=== PATIENT | male | born 1965 | race Caucasian/White ===

== ENCOUNTER 2017-01-01 12:09 | Emergency (ER) | payer OTHER ==
[2017-01-01 12:31] VITALS: BP 155/85; PULSE 90; TEMP 97.5; BMI 28.8
[2017-01-01] MEDS ORDERED: ALBUTEROL SO4 0.083% IH SOL 2.5 MG/3 ML VIAL.NEB. NEB ONE (13:10)
--- NOTE | 2017-01-01 13:42 | PDOC ---
History of Present Illness - General Chief Complaint: Cold Symptoms Stated Complaint: CONGESTED, COUGH, FATIGUE Time Seen by Provider: 01/01/17 12:56 History Source: Patient Exam Limitations: Language Barrier - History of Present Illness Initial Comments: 01/01/17 13:39 51 yr male with 10 days URI symptoms,continues to have cough sinus pressure and thick nasal discharge. Pt states had fever last week and flu like symptoms that have improved. Pt is a smoker, denies alcohol, denies drug use , denies chest pain or shortness of breath. Severity: reports: mild Possible Cause: Yes: no prior episodes Past History - Past Medical History Allergies/Adverse Reactions: Allergies Allergy/AdvReac Type Severity Reaction Status Date / Time levofloxacin [From Levaquin] Allergy Rash Verified 01/01/17 12:27 Home Medications: Ambulatory Orders Omeprazole [Prilosec] 20 mg PO DAILY 04/04/16 Amoxicillin/Potassium Clav [Augmentin 875-125 Tablet] 1 each PO BID #14 tablet 01/01/17 Diabetes: Yes (BORDERLINE) HTN: Yes - Psycho/Social/Smoking Cessation Hx Suicidal Ideation: No Smoking History: Current every day smoker Number of Cigarettes Smoked Daily: 10 Information on smoking cessation initiated: No 'Breaking Loose' booklet given: 04/04/16 Hx Alcohol Use: No Drug/Substance Use Hx: No Substance Use Type: None Respiratory Specific PMHX - Complaint Specific PMHX Angina: No Bronchitis: No Pneumonia: No Pulmonary Embolus: No TB (Tuberculosis): No Review of Systems - Review of Systems Able to Perform ROS?: Yes Is the patient limited Icelandic proficient: No Constitutional: No: Symptoms Reported HEENTM: Yes: See HPI Respiratory: Yes: See HPI *Physical Exam - Vital Signs Last Vital Signs Temp Pulse Resp BP Pulse Ox 97.5 F L 90 19 155/85 98 01/01/17 12:27 01/01/17 12:27 01/01/17 12:27 01/01/17 12:27 01/01/17 12:27 - Physical Exam General Appearance: Yes: Nourished, Appropriately Dressed HEENT: positive: EOMI, ANIKA, TMs Normal, Nasal Congestion, Sinus Tenderness ( maxilary ) Neck: positive: Supple. negative: Tender Respiratory/Chest: positive: Lungs Clear, Normal Breath Sounds Cardiovascular: positive: Regular Rhythm, Regular Rate Gastrointestinal/Abdominal: positive: Normal Bowel Sounds, Soft Musculoskeletal: positive: Normal Inspection Extremity: positive: Normal Capillary Refill, Normal Inspection, Normal Range of Motion Integumentary: positive: Normal Color, Dry, Warm Neurologic: positive: Fully Oriented, Alert, Normal Mood/Affect, Normal Response , Motor Strength 04/02 ED Treatment Course - RADIOLOGY Radiology Studies Ordered: Category Date Time Status CHEST PA & LAT [RAD] Stat Radiology 01/01/17 12:58 Ordered Medical Decision Making - Medical Decision Making 01/01/17 13:42 cc: cough sinus pressure, congestion and nasal discharge will get CXR albuterol neb x1 *DC/Admit/Observation/Transfer Diagnosis at time of Disposition: Acute maxillary sinusitis Qualifiers: Recurrence: not specified Qualified Code(s): J01.00 - Acute maxillary sinusitis , unspecified - Discharge Dispostion Disposition: HOME Condition at time of disposition: Good - Prescriptions Prescriptions: Amoxicillin/Potassium Clav [Augmentin 875-125 Tablet] 1 each PO BID #14 tablet - Referrals Referrals: Matthew Garland MD [Staff Physician] - - Patient Instructions Additional Instructions: use albuterol inhaler for cough as directed take the prescribed antibiotics for sinus infection use saline nasal spray or a nasal cleaning system such as a Netti Pot to irrigate the nasal passages follow with the ENT doctor for follow up if symptoms do not improve
== END 2017-01-01 13:59 | disposition home or self-care (01) ==
LOC: JERFT 12:09
DX: R42 Dizziness and giddiness (principal); I10 Essential (primary) hypertension; F10.10 Alcohol abuse, uncomplicated; F17.210 Nicotine dependence, cigarettes, uncomplicated
CPT/HCPCS: 71020-TC; 99281-25

== ENCOUNTER 2018-03-30 12:51 | Inpatient (IN) | payer OTHER ==
[2018-03-30 14:29] VITALS: BMI 25.8
--- NOTE | 2018-03-30 20:28 | HP ---
CIWA Score - CIWA Score Nausea/Vomitin Muscle Tremors: 2 Anxiety: 2 Agitation: 0-Normal Activity Paroxysmal Sweats: 3 Orientation: 0-Oriented Tacttile Disturbances: 2-Mild Itch/Numbness/Burn Auditory Disturbances: 0-None Visual Disturbances: 1-Very Mild Sensitivity Headache: 2-Mild CIWA-Ar Total Score: 14 Admission ROS S - HPI Chief Complaint: " I am here for detox, I tried to stop on my own and is not working" Allergies/Adverse Reactions: Allergies Allergy/AdvReac Type Severity Reaction Status Date / Time levofloxacin [From Levaquin] Allergy Rash Verified 03/30/18 18:04 History of Present Illness: 52 yo male with hx of nicotine, THC, alcohol, cocaine, heroin dependence is here seeking detox. PMHX: psoriasis, STENT x2 placed 5 weeks ago, angina, depression, panic attacks, anxiety. Denies suicidal / homicidal ideation or attempts. Reports hx of suicidal thoughts in the past denies currently feeling suicidal. Longest period of sobriety 4 moths. Denies hx of seizures, reports frequent blackouts with last episode a week ago. Last detox [facility] August 2017. Exam Limitations: No Limitations - Ebola screening Have you traveled outside of the country in the last 21 days: No Have you had contact with anyone from an Ebola affected area: No Have you been sick,other than usual withdrawal symptoms: No - Review of Systems Constitutional: Chills, Loss of Appetite, Changes in sleep, Weakness, Unintentional Wgt. Loss (reports 30 lbs loss over three months) EENT: reports: Blurred Vision (wears glasses), Other (pruritus inside both ears secondary to psoriasis) Respiratory: reports: Shortness of Breath (when smoking crack / cocaine) Cardiac: reports: See HPI GI: reports: Constipated (last BM yesterday), Nausea, Poor Appetite, Poor Fluid Intake : reports: No Symptoms Reported Musculoskeletal: reports: No Symptoms Reported Integumentary: reports: Lesions, Pruritus Neuro: reports: Headache, Tingling Endocrine: reports: Increased Thirst Hematology: reports: No Symptoms Reported Psychiatric: reports: Orientated x3, Depressed Other Systems: Reviewed and Negative Patient History - Patient Medical History Hx Anemia: No Hx Asthma: No Hx Chronic Obstructive Pulmonary Disease (COPD): No Hx Cancer: No Hx Cardiac Disorders: Yes (BLOCKED ARTERIES, s/p STENT x 2 five weeks ago ) Hx Congestive Heart Failure: No Hx Hypertension: Yes Hx Hypercholesterolemia: Yes Hx Pacemaker: No HX Cerebrovascular Accident: No Hx Seizures: No Hx Dementia: No Hx Diabetes: No Hx Gastrointestinal Disorders: No Hx Liver Disease: No Hx Genitourinary Disorders: No Hx Sexually Transmitted Disorders: No Hx Renal Disease (ESRD): No Hx Thyroid Disease: No Hx Human Immunodeficiency Virus (HIV): No Hx Hepatitis C: No Hx Depression: Yes Hx Suicide Attempt: No Hx Bipolar Disorder: No Hx Schizophrenia: No - Patient Surgical History Past Surgical History: Yes Hx Neurologic Surgery: No Hx Cataract Extraction: No Hx Cardiac Surgery: Yes (2 STENTS 02/26/18) Hx Lung Surgery: No Hx Breast Surgery: No Hx Breast Biopsy: No Hx Abdominal Surgery: No Hx Appendectomy: No Hx Cholecystectomy: No Hx Genitourinary Surgery: No Hx Section: No Hx Orthopedic Surgery: No Hx Hysterectomy: No Other Surgical History: left tibia fx repair 2011 - PPD History Previous Implant?: No Documented Results: Negative w/o proof Implanted On Prior R Admission?: No PPD to be Administered?: Yes - Reproductive History Patient is a Female of Child Bearing Age (11 -55 yrs old): No - Smoking Cessation Smoking history: Current every day smoker Have you smoked in the past 12 months: Yes Aproximately how many cigarettes per day: 10 Hx Chewing Tobacco Use: No Initiated information on smoking cessation: Yes 'Breaking Loose' booklet given: 03/30/18 - Substance & Tx. History Hx Alcohol Use: Yes Hx Substance Use: Yes Substance Use Type: Alcohol, Cocaine, Heroin, Marijuana Hx Substance Use Treatment: Yes ([facility] August 2017) - Substances Abused Alcohol Route: Oral Frequency: Daily Amount used: 1 [place] 1O/ 12OZ OF COORSLIGHT Age of first use: 13 Date of Last Use: 03/30/18 Cocaine Route: Smoking Frequency: Daily Amount used: 1GRAM 1/2 Age of first use: 49 Date of Last Use: 03/29/18 Heroin Route: SNIFF Frequency: Daily Amount used: 1/2 GRAM Age of first use: 49 Date of Last Use: 03/30/18 Family Disease History - Family Disease History Family Disease History: Diabetes: Father, CA: Mother ( skin CA ), Other: Father, Mother Admission Physical Exam BHS - Vital Signs Vital Signs: Vital Signs - 24 hr 03/30/18 14:24 Temperature 98.1 F Pulse Rate 77 Respiratory 18 Rate Blood Pressure 141/77 - Physical General Appearance: Yes: Appropriately Dressed, Mild Distress, Anxious HEENTM: Yes: EOMI, Hearing grossly Normal, Normal ENT Inspection, Normocephalic , Normal Voice, ANIKA, Pharynx Normal, Tm's normal Respiratory: Yes: Chest Non-Tender, Lungs Clear, Normal Breath Sounds, No Respiratory Distress, No Accessory Muscle Use Neck: Yes: No masses,lesions,Nodules, Trachea in good position Breast: Yes: Breast Exam Deferred Cardiology: Yes: Regular Rhythm, Regular Rate Abdominal: Yes: Normal Bowel Sounds, Non Tender, Flat, Soft Genitourinary: Yes: Within Normal Limits Back: Yes: Normal Inspection Musculoskeletal: Yes: full range of Motion, Gait Steady, Pelvis Stable Extremities: Yes: Normal Capillary Refill, Normal Inspection, Normal Range of Motion, Non-Tender Neurological: Yes: caterer's aide II-XII NML intact, Fully Oriented, Alert, Motor Strength 5/5, Depressed Affect Integumentary: Yes: Diaphoresis, Other (multiple erythematous / silver plaques throughout) Lymphatic: Yes: Within Normal Limits - Diagnostic (1) Marijuana dependence Current Visit: Yes Status: Acute (2) Nicotine dependence Current Visit: Yes Status: Acute (3) Cocaine dependence Current Visit: Yes Status: Acute (4) Alcohol dependence with withdrawal Current Visit: Yes Status: Acute (5) Psoriasis Current Visit: Yes Status: Acute (6) Depression Current Visit: Yes Status: Acute Qualifiers: Depression Type: dysthymia Qualified Code(s): F34.1 - Dysthymic disorder (7) History of heart artery stent Current Visit: Yes Status: Acute (8) Opioid dependence Current Visit: Yes Status: Acute Qualifiers: Substance use status: uncomplicated Qualified Code(s): F11.20 - Opioid dependence, uncomplicated Cleared for Admission [facility] - Detox or Rehab [facility] Level of Care: Medically Managed Detox Regimen/Protocol: Librium [facility] Breath Alcohol Content Breath Alcohol Content: 0 Urine Drug Screen - Results Drug Screen Negative: No Urine Drug Screen Results: TRAVIS-Cocaine
[2018-03-30] MEDS ORDERED: LOPERAMIDE HCL 2 MG CAPSULE PO PRN (20:40)
[2018-03-30] MEDS ORDERED: NICOTINE POLACRILEX 2 MG GUM BC PRN (20:40)
[2018-03-30] MEDS ORDERED: guaiFENesin/D-METHORPHAN HB 10 ML UNIT-DOSE CUPS PO PRN (20:40)
[2018-03-30] MEDS ORDERED: chlordiazePOXIDE HCL 25 MG CAPSULE PO ONE (20:40)
[2018-03-30] MEDS ORDERED: hydrOXYzine PAMOATE 50 MG CAPSULE (FP) PO PRN (20:40)
[2018-03-30] MEDS ORDERED: MAGNESIUM HYDROX 2400MG/30ML ORAL SUSPENSION 30 ML CUP PO PRN (20:40)
[2018-03-30] MEDS ORDERED: IBUPROFEN 400 MG TABLET (FP) PO PRN (20:40)
[2018-03-30] MEDS ORDERED: MENTHOL/PHENOL 1 EACH UD MM PRN (20:40)
[2018-03-30] MEDS ORDERED: MAG HYDROX/AL HYDROX/SIMETH 30 ML UNIT-DOSE CUP PO PRN (20:40)
[2018-03-30] MEDS ORDERED: chlordiazePOXIDE HCL 25 MG CAPSULE PO PRN (20:40)
[2018-03-30] MEDS ORDERED: P-EPHED 60MG/TRIPROLIDI 2.5MG TABLET PO PRN (20:40)
[2018-03-30] MEDS ORDERED: MAGNESIUM CITRATE 300 ML BOTTLE PO PRN (20:40)
[2018-03-30] MEDS: CLOPIDOGREL BISULFATE 75 MG TABLET (FP) PO SCH (20:53)
[2018-03-30] MEDS: ASPIRIN COATED 81 MG TABLET.EC PO SCH (20:53)
[2018-03-30] MEDS ORDERED: MELATONIN 5 MG TABLETS PO PRN (22:00)
[2018-03-30] MEDS: chlordiazePOXIDE HCL 25 MG CAPSULE PO SCH (22:36)
[2018-03-30] MEDS: THIAMINE HCL 100 MG TABLET (FP) PO SCH (22:36)
[2018-03-30] MEDS: TRIAMCINOLONE ACET 0.1% OINT 15 GM TUBE TP SCH (23:11)
[2018-03-30 23:44] LABS: URINE APPEARANCE CLEAR; URINE BILIRUBIN NEGATIVE (<2.0 mg/dL); URINE COLOR YELLOW; URINE GLUCOSE (UA) NEGATIVE (NEGATIVE); URINE KETONE NEGATIVE (NEGATIVE); URINE LEUK ESTERASE NEGATIVE (NEGATIVE); URINE NITRITE NEGATIVE (NEGATIVE); URINE PROTEIN NEGATIVE (NEGATIVE); URINE UROBILINOGEN NEGATIVE mg/dL (0.2-1.0)
[2018-03-31] MEDS: chlordiazePOXIDE HCL 25 MG CAPSULE PO SCH ×4 (05:16→22:27)
[2018-03-31] MEDS: TRIAMCINOLONE ACET 0.1% OINT 15 GM TUBE TP SCH ×3 (06:39→22:27)
[2018-03-31 09:44] LABS: HEMATOCRIT 40.5 % (35.4-49); HEMOGLOBIN 13.9 GM/dL (11.7-16.9); MCH 30.4 pg (25.7-33.7); MCHC 34.2 g/dl (32.0-35.9); MEAN CELL VOLUME 88.8 fl (80-96); PLATELET COUNT 301 K/MM3 (134-434); RBC 4.56 M/mm3 (4.00-5.60); RDW 13.4 % (11.9-15.9); WHITE BLOOD COUNT 7.8 K/mm3 (4.0-10.0)
[2018-03-31] MEDS: CLOPIDOGREL BISULFATE 75 MG TABLET (FP) PO SCH (10:06)
[2018-03-31] MEDS: PRENATAL VITAMINS W/ FOLIC ACID TABLET (FP) PO SCH (10:06)
[2018-03-31] MEDS: ASPIRIN COATED 81 MG TABLET.EC PO SCH (10:06)
[2018-03-31 10:42] LABS: CHLORIDE 108 mmol/L (98-107); POTASSIUM 4.1 mmol/L (3.5-5.1); SODIUM 144 mmol/L (136-145)
[2018-03-31 10:51] LABS: ALBUMIN 3.1 g/dl (3.4-5.0); ALK PHOS 88 U/L (45-117); ANION GAP 9 (8-16); BILIRUBIN,TOTAL 0.4 mg/dL (0.2-1.0); BLOOD UREA NITROGEN 14 mg/dL (7-18); CALCIUM 8.5 mg/dL (8.5-10.1); CO2 27 mmol/L (21-32); GLUCOSE,RANDOM 132 mg/dL (74-106); SGOT/AST 14 U/L (15-37); SGPT/ALT 18 U/L (12-78); TOT PROT 5.9 g/dl (6.4-8.2)
--- NOTE | 2018-03-31 11:31 | EKG ---
Test Reason : Blood Pressure : / mmHG Vent. Rate : 063 BPM Atrial Rate : 063 BPM P-R Int : 154 ms QRS Dur : 090 ms QT Int : 398 ms P-R-T Axes : 039 -14 -18 degrees QTc Int : 407 ms NORMAL SINUS RHYTHM MODERATE VOLTAGE CRITERIA FOR LVH, MAY BE NORMAL VARIANT BORDERLINE ECG WHEN COMPARED WITH ECG OF 04-APR-2016 18:13, NO SIGNIFICANT CHANGE WAS FOUND Confirmed by INDRA TRIPP, JASEN ([id number]) on 03/31/2018 11:31:01 AM Referred By: Confirmed By:JASEN BURRELL MD
--- NOTE | 2018-03-31 11:40 | CONSULT ---
[facility] Psychiatric Consult - Data Date of interview: 03/31/18 Admission source: [facility] Identifying data: Patient is a 52 year old single male, without kids, unemployed , receiving food stamps, homeless but currently staying with a relative. This is patient's first admission to [facility]. Patient admitted to for alcohol, cocaine and opiate dependence. Substance Abuse History: Following information confirmed with Mr. Dimas: Smoking Cessation. Smoking history: Current every day smoker. Have you smoked in the past 12 months: Yes. Aproximately how many cigarettes per day: 10. Hx Chewing Tobacco Use: No. Initiated information on smoking cessation: Yes. ' Breaking Loose' booklet given: 03/30/18. - Substance & Tx. History. Hx Alcohol Use: Yes. Hx Substance Use: Yes. Substance Use Type: Alcohol, Cocaine , Heroin, Marijuana. Hx Substance Use Treatment: Yes ([facility] August 2017). - Substances Abused. Alcohol. Route: Oral. Frequency: Daily. Amount used: 1 [place] 1O/ 12OZ OF COORSLIGHT. Age of first use: 13. Date of Last Use : 03/30/18. Cocaine. Route: Smoking. Frequency: Daily. Amount used: 1GRAM 1/2. Age of first use: 49. Date of Last Use: 03/29/18. Heroin. Route: SNIFF. Frequency: Daily. Amount used: 1/2 GRAM. Age of first use: 49. Date of Last Use: 03/30/18 Medical History: Blocked arterties s/p stent X2 five weeks ago, hypertension, hypercholesterolemia, left tibia fx repair 2011. Psychiatric History: Patient reports h/o two psychiatric hospitalizations, most recently two months ago at [facility] after endorsing suicidal ideation. Pt. was also admitted to [facility] in the summer of 2016 for SI. Patient was prescribed paxil while at [facility] but reports nonadherence to medications after discharge. Pt denies OPD. Patient denies h/o suicide attempt. Physical/Sexual Abuse/Trauma History: Denies. Mental Status Exam - Mental Status Exam Alert and Oriented to: Time, Place, Person Cognitive Function: Good Patient Appearance: Unkempt Mood: Euthymic Affect: Mood Congruent Patient Behavior: Cooperative Speech Pattern: Appropriate Voice Loudness: Normal Thought Process: Intact, Goal Oriented Thought Disorder: Not Present Hallucinations: Denies Suicidal Ideation: Denies Homicidal Ideation: Denies Insight/Judgement: Poor Sleep: Fair Appetite: Fair Muscle strength/Tone: Normal Gait/Station: Other (Did not observe patient's gait.) Psychiatric Findings - Problem List ([place] 1, 2,3) (1) Substance induced mood disorder Current Visit: Yes Status: Acute (2) Alcohol dependence with withdrawal Current Visit: Yes Status: Acute (3) Cocaine dependence Current Visit: Yes Status: Acute (4) Marijuana dependence Current Visit: Yes Status: Acute (5) Nicotine dependence Current Visit: Yes Status: Acute (6) Opioid dependence Current Visit: Yes Status: Acute Qualifiers: Substance use status: uncomplicated Qualified Code(s): F11.20 - Opioid dependence, uncomplicated - Initial Treatment Plan Initial Treatment Plan: Psychoeducation provided. Detoxification in progress. Patient refuses to restart paxil. Will continue to monitor.
--- NOTE | 2018-03-31 11:48 | PN ---
[facility] CIWA - CIWA Score Nausea/Vomitin-No Nausea/No Vomiting Muscle Tremors: 2 Anxiety: 4-Mod. Anxious/Guarded Agitation: 1-Slight > Activity Paroxysmal Sweats: 2 Orientation: 0-Oriented Tacttile Disturbances: 2-Mild Itch/Numbness/Burn Auditory Disturbances: 1-Very Mild Visual Disturbances: 3-Moderate Sensitivity Headache: 0-None Present CIWA-Ar Total Score: 15 S Progress Note (SOAP) Subjective: Interrupted Sleep, Sweating, H/A, Fatigue. Objective: PATIENT A & O X 3, OBSERVED AMBULATING ON UNIT. NO ACUTE DISTRESS. 03/31/18 11:46 Vital Signs Temperature 96.4 F L 03/31/18 09:07 Pulse Rate 64 03/31/18 09:07 Respiratory Rate 18 03/31/18 09:07 Blood Pressure 114/64 03/31/18 09:07 O2 Sat by Pulse Oximetry (%) Laboratory Tests 03/30/18 03/31/18 03/31/18 23:48 07:30 07:30 WBC 7.8 RBC 4.56 Hgb 13.9 Hct 40.5 MCV 88.8 MCH 30.4 MCHC 34.2 RDW 13.4 Plt Count 301 MPV 8.0 Sodium 144 Potassium 4.1 Chloride 108 H Carbon Dioxide 27 Anion Gap 9 BUN 14 Creatinine 1.0 Creat Clearance w eGFR > 60 Random Glucose 132 H Calcium 8.5 Total Bilirubin 0.4 AST 14 L ALT 18 D Alkaline Phosphatase 88 D Total Protein 5.9 L Albumin 3.1 L Urine Color Yellow Urine Appearance Clear Urine pH 5.0 Ur Specific [place] 1.016 Urine Protein Negative Urine Glucose (UA) Negative Urine Ketones Negative Urine Blood Negative Urine Nitrite Negative Urine Bilirubin Negative Urine Urobilinogen Negative Ur Leukocyte Esterase Negative LABS NOTED. RPR RESULT PENDING. 03/31/18 11:48 Assessment: 03/31/18 11:47 WITHDRAWAL SYMPTOMS. Plan: CONTINUE DETOX. INCREASE DAILY PO FLUID INTAKE.
[2018-03-31] MEDS: THIAMINE HCL 100 MG TABLET (FP) PO SCH (22:27)
[2018-04-01] MEDS: chlordiazePOXIDE HCL 25 MG CAPSULE PO SCH ×3 (05:36→17:09)
[2018-04-01] MEDS: TRIAMCINOLONE ACET 0.1% OINT 15 GM TUBE TP SCH ×4 (06:28→22:21)
[2018-04-01] MEDS: PRENATAL VITAMINS W/ FOLIC ACID TABLET (FP) PO SCH (10:04)
[2018-04-01] MEDS: ASPIRIN COATED 81 MG TABLET.EC PO SCH (10:04)
[2018-04-01] MEDS: CLOPIDOGREL BISULFATE 75 MG TABLET (FP) PO SCH (10:04)
--- NOTE | 2018-04-01 10:46 | PN ---
S CIWA - CIWA Score Nausea/Vomitin Muscle Tremors: 3 Anxiety: 4-Mod. Anxious/Guarded Agitation: 1-Slight > Activity Paroxysmal Sweats: 3 Orientation: 0-Oriented Tacttile Disturbances: 0-None Auditory Disturbances: 0-None Visual Disturbances: 2-Mild Sensitivity Headache: 0-None Present CIWA-Ar Total Score: 16 BHS Progress Note (SOAP) Subjective: Tremors, Nausea, Interrupted Sleep, Constipation, Sweating, H/A, Body Aches. Objective: PATIENT A & O X 3, OBSERVED AMBULATING ON UNIT. NO ACUTE DISTRESS. 04/01/18 10:46 Vital Signs Temperature 96.6 F L 04/01/18 09:37 Pulse Rate 74 04/01/18 09:37 Respiratory Rate 18 04/01/18 09:37 Blood Pressure 136/77 04/01/18 09:37 O2 Sat by Pulse Oximetry (%) Laboratory Tests 03/30/18 03/31/18 03/31/18 23:48 07:30 07:30 WBC 7.8 RBC 4.56 Hgb 13.9 Hct 40.5 MCV 88.8 MCH 30.4 MCHC 34.2 RDW 13.4 Plt Count 301 MPV 8.0 Sodium 144 Potassium 4.1 Chloride 108 H Carbon Dioxide 27 Anion Gap 9 BUN 14 Creatinine 1.0 Creat Clearance w eGFR > 60 Random Glucose 132 H Calcium 8.5 Total Bilirubin 0.4 AST 14 L ALT 18 D Alkaline Phosphatase 88 D Total Protein 5.9 L Albumin 3.1 L Urine Color Yellow Urine Appearance Clear Urine pH 5.0 Ur Specific [place] 1.016 Urine Protein Negative Urine Glucose (UA) Negative Urine Ketones Negative Urine Blood Negative Urine Nitrite Negative Urine Bilirubin Negative Urine Urobilinogen Negative Ur Leukocyte Esterase Negative RPR Titer 03/31/18 07:30 WBC RBC Hgb Hct MCV MCH MCHC RDW Plt Count MPV Sodium Potassium Chloride Carbon Dioxide Anion Gap BUN Creatinine Creat Clearance w eGFR Random Glucose Calcium Total Bilirubin AST ALT Alkaline Phosphatase Total Protein Albumin Urine Color Urine Appearance Urine pH Ur Specific [place] Urine Protein Urine Glucose (UA) Urine Ketones Urine Blood Urine Nitrite Urine Bilirubin Urine Urobilinogen Ur Leukocyte Esterase RPR Titer Nonreactive LABS NOTED. Assessment: 04/01/18 10:49 WITHDRAWAL SYMPTOMS. Plan: CONTINUE DETOX. INCREASE DAILY PO FLUID INTAKE.
[2018-04-01] MEDS: chlordiazePOXIDE 5 MG CAPSULE PO SCH (22:21)
[2018-04-01] MEDS: THIAMINE HCL 100 MG TABLET (FP) PO SCH (22:21)
[2018-04-02] MEDS: ACETAMINOPHEN 325 MG TABLET (FP) PO PRN ×2 (00:15→18:09)
[2018-04-02] MEDS: chlordiazePOXIDE 5 MG CAPSULE PO SCH ×3 (05:04→17:01)
[2018-04-02] MEDS: TRIAMCINOLONE ACET 0.1% OINT 15 GM TUBE TP SCH ×3 (07:40→22:08)
[2018-04-02] MEDS: ASPIRIN COATED 81 MG TABLET.EC PO SCH (10:09)
[2018-04-02] MEDS: PRENATAL VITAMINS W/ FOLIC ACID TABLET (FP) PO SCH (10:09)
[2018-04-02] MEDS: CLOPIDOGREL BISULFATE 75 MG TABLET (FP) PO SCH (10:09)
--- NOTE | 2018-04-02 14:28 | PN ---
[facility] Progress Note (SOAP) Subjective: Tremors, Sweating,H/A, Body Aches. Objective: PATIENT A & O X 3, OBSERVED AMBULATING ON UNIT. NO ACUTE DISTRESS. 04/02/18 14:27 Vital Signs Temperature 96.2 F L 04/02/18 06:30 Pulse Rate 59 L 04/02/18 06:30 Respiratory Rate 18 04/02/18 06:30 Blood Pressure 106/62 04/02/18 06:30 O2 Sat by Pulse Oximetry (%) Laboratory Tests 03/30/18 03/31/18 03/31/18 23:48 07:30 07:30 WBC 7.8 RBC 4.56 Hgb 13.9 Hct 40.5 MCV 88.8 MCH 30.4 MCHC 34.2 RDW 13.4 Plt Count 301 MPV 8.0 Sodium 144 Potassium 4.1 Chloride 108 H Carbon Dioxide 27 Anion Gap 9 BUN 14 Creatinine 1.0 Creat Clearance w eGFR > 60 Random Glucose 132 H Calcium 8.5 Total Bilirubin 0.4 AST 14 L ALT 18 D Alkaline Phosphatase 88 D Total Protein 5.9 L Albumin 3.1 L Urine Color Yellow Urine Appearance Clear Urine pH 5.0 Ur Specific [place] 1.016 Urine Protein Negative Urine Glucose (UA) Negative Urine Ketones Negative Urine Blood Negative Urine Nitrite Negative Urine Bilirubin Negative Urine Urobilinogen Negative Ur Leukocyte Esterase Negative RPR Titer 03/31/18 07:30 WBC RBC Hgb Hct MCV MCH MCHC RDW Plt Count MPV Sodium Potassium Chloride Carbon Dioxide Anion Gap BUN Creatinine Creat Clearance w eGFR Random Glucose Calcium Total Bilirubin AST ALT Alkaline Phosphatase Total Protein Albumin Urine Color Urine Appearance Urine pH Ur Specific [place] Urine Protein Urine Glucose (UA) Urine Ketones Urine Blood Urine Nitrite Urine Bilirubin Urine Urobilinogen Ur Leukocyte Esterase RPR Titer Nonreactive LABS NOTED. Assessment: 04/02/18 14:27 WITHDRAWAL SYMPTOMS. Plan: CONTINUE DETOX. INCREASE DAILY PO FLUID INTAKE.
[2018-04-02] MEDS: chlordiazePOXIDE HCL 10 MG CAPSULE PO SCH (22:08)
[2018-04-02] MEDS: THIAMINE HCL 100 MG TABLET (FP) PO SCH (22:08)
[2018-04-03] MEDS: chlordiazePOXIDE HCL 10 MG CAPSULE PO SCH ×2 (05:12→10:10)
[2018-04-03] MEDS: TRIAMCINOLONE ACET 0.1% OINT 15 GM TUBE TP SCH (06:47)
--- NOTE | 2018-04-03 08:44 | DS ---
[facility] Detox Discharge Summary Admission Date: 03/30/18 Discharge Date: 04/03/18 - History Present History: Alcohol Dependence, Cocaine Dependence Additional Comments: DETOX COMPLETED. REFERRED TO [facility] TODAY. Pertinent Past History: PLEASE SEE DX BELOW - Physical Exam Results Vital Signs: Vital Signs Temperature 96.2 F L 04/03/18 06:30 Pulse Rate 64 04/03/18 06:30 Respiratory Rate 18 04/03/18 06:30 Blood Pressure 112/68 04/03/18 06:30 O2 Sat by Pulse Oximetry (%) Pertinent Admission Physical Exam Findings: WITHDRAWAL SX Laboratory Tests 03/30/18 03/31/18 03/31/18 23:48 07:30 07:30 WBC 7.8 RBC 4.56 Hgb 13.9 Hct 40.5 MCV 88.8 MCH 30.4 MCHC 34.2 RDW 13.4 Plt Count 301 MPV 8.0 Sodium 144 Potassium 4.1 Chloride 108 H Carbon Dioxide 27 Anion Gap 9 BUN 14 Creatinine 1.0 Creat Clearance w eGFR > 60 Random Glucose 132 H Calcium 8.5 Total Bilirubin 0.4 AST 14 L ALT 18 D Alkaline Phosphatase 88 D Total Protein 5.9 L Albumin 3.1 L Urine Color Yellow Urine Appearance Clear Urine pH 5.0 Ur Specific [place] 1.016 Urine Protein Negative Urine Glucose (UA) Negative Urine Ketones Negative Urine Blood Negative Urine Nitrite Negative Urine Bilirubin Negative Urine Urobilinogen Negative Ur Leukocyte Esterase Negative RPR Titer 03/31/18 07:30 WBC RBC Hgb Hct MCV MCH MCHC RDW Plt Count MPV Sodium Potassium Chloride Carbon Dioxide Anion Gap BUN Creatinine Creat Clearance w eGFR Random Glucose Calcium Total Bilirubin AST ALT Alkaline Phosphatase Total Protein Albumin Urine Color Urine Appearance Urine pH Ur Specific [place] Urine Protein Urine Glucose (UA) Urine Ketones Urine Blood Urine Nitrite Urine Bilirubin Urine Urobilinogen Ur Leukocyte Esterase RPR Titer Nonreactive - Treatment Hospital Course: Detox Protocol Followed, Detoxed Safely, Responded well, Discharged Condition Good, Rehab Referral Accepted Patient has Accepted a Rehab Referral to: [facility] - Medication Discharge Medications: Ambulatory Orders Aspirin [Aspirin EC] 81 mg PO DAILY 03/30/18 Clopidogrel Bisulfate [Clopidogrel] 75 mg PO DAILY 03/30/18 Halobetasol Prop 0.05% Tp Crm [Ultravate (Nf)] 1 applic TP DAILY 03/30/18 Triamcinolone 0.1% Ointment [Aristocort 0.1% Ointment -] 1 applic TP TID applic 04/03/18 - Diagnosis (1) Alcohol dependence with withdrawal Status: Acute Qualifiers: Complication of substance-induced condition: uncomplicated Qualified Code(s ): F10.230 - Alcohol dependence with withdrawal, uncomplicated (2) Cocaine dependence Status: Acute Qualifiers: Substance use status: uncomplicated Qualified Code(s): F14.20 - Cocaine dependence, uncomplicated (3) History of heart artery stent Status: Chronic (4) Nicotine dependence Status: Acute Qualifiers: Nicotine product type: cigarettes Substance use status: in withdrawal Qualified Code(s): F17.213 - Nicotine dependence, cigarettes, with withdrawal (5) Psoriasis Status: Chronic (6) Opioid dependence Status: Acute Qualifiers: Substance use status: uncomplicated Qualified Code(s): F11.20 - Opioid dependence, uncomplicated - AMA Did Patient Leave Against Medical Advice: No
[2018-04-03 09:23] VITALS: BP 106/71; PULSE 81; TEMP 97.7
[2018-04-03] MEDS: ASPIRIN COATED 81 MG TABLET.EC PO SCH (10:10)
[2018-04-03] MEDS: CLOPIDOGREL BISULFATE 75 MG TABLET (FP) PO SCH (10:10)
[2018-04-03] MEDS: PRENATAL VITAMINS W/ FOLIC ACID TABLET (FP) PO SCH (10:10)
--- NOTE | 2018-04-03 15:57 | PN ---
[facility] Progress Note (SOAP) Subjective: DETOX COMPLETED, ALERT O X 3. REFERRED TO AFTERCARE IN [address] Objective: 04/03/18 15:56 Vital Signs Temperature 97.7 F 04/03/18 09:33 Pulse Rate 81 04/03/18 09:33 Respiratory Rate 18 04/03/18 09:33 Blood Pressure 106/71 04/03/18 09:33 O2 Sat by Pulse Oximetry (%) Laboratory Tests 03/30/18 03/31/18 03/31/18 23:48 07:30 07:30 WBC 7.8 RBC 4.56 Hgb 13.9 Hct 40.5 MCV 88.8 MCH 30.4 MCHC 34.2 RDW 13.4 Plt Count 301 MPV 8.0 Sodium 144 Potassium 4.1 Chloride 108 H Carbon Dioxide 27 Anion Gap 9 BUN 14 Creatinine 1.0 Creat Clearance w eGFR > 60 Random Glucose 132 H Calcium 8.5 Total Bilirubin 0.4 AST 14 L ALT 18 D Alkaline Phosphatase 88 D Total Protein 5.9 L Albumin 3.1 L Urine Color Yellow Urine Appearance Clear Urine pH 5.0 Ur Specific [place] 1.016 Urine Protein Negative Urine Glucose (UA) Negative Urine Ketones Negative Urine Blood Negative Urine Nitrite Negative Urine Bilirubin Negative Urine Urobilinogen Negative Ur Leukocyte Esterase Negative RPR Titer 03/31/18 07:30 WBC RBC Hgb Hct MCV MCH MCHC RDW Plt Count MPV Sodium Potassium Chloride Carbon Dioxide Anion Gap BUN Creatinine Creat Clearance w eGFR Random Glucose Calcium Total Bilirubin AST ALT Alkaline Phosphatase Total Protein Albumin Urine Color Urine Appearance Urine pH Ur Specific [place] Urine Protein Urine Glucose (UA) Urine Ketones Urine Blood Urine Nitrite Urine Bilirubin Urine Urobilinogen Ur Leukocyte Esterase RPR Titer Nonreactive Assessment: 04/03/18 15:56 MEDICALLY STABLE Plan: D/C PT TODAY TO REHAB
== END 2018-04-03 12:17 | disposition other institution (70) | DRG 773 ==
LOC: YASAS 12:51 → Y3N 19:10
PROVIDERS: ADMIT Internal Medicine; ATTEND Internal Medicine
PROC: HZ2ZZZZ Detoxification Services for Substance Abuse Treatment (ICD-10-PCS; principal; 2018-03-30)
DX: F11.20 Opioid dependence, uncomplicated (principal); F10.230 Alcohol dependence with withdrawal, uncomplicated; F14.20 Cocaine dependence, uncomplicated; F12.20 Cannabis dependence, uncomplicated; F17.213 Nicotine dependence, cigarettes, with withdrawal; F19.24 Other psychoactive substance dependence with psychoactive substance-induced mood disorder; F34.1 Dysthymic disorder; L40.9 Psoriasis, unspecified; Z95.5 Presence of coronary angioplasty implant and graft
CPT/HCPCS: 36415; 80053; 81003; 85027; 86593; 93005; 93010

== ENCOUNTER 2018-04-03 12:31 | Inpatient (IN) | payer OTHER ==
[2018-04-03] MEDS ORDERED: P-EPHED 60MG/TRIPROLIDI 2.5MG TABLET PO PRN (13:06)
[2018-04-03] MEDS ORDERED: LOPERAMIDE HCL 2 MG CAPSULE PO PRN (13:06)
[2018-04-03] MEDS ORDERED: NICOTINE POLACRILEX 2 MG GUM BUC PRN (13:06)
[2018-04-03] MEDS ORDERED: guaiFENesin/D-METHORPHAN HB 10 ML UNIT-DOSE CUPS PO PRN (13:06)
[2018-04-03] MEDS ORDERED: MENTHOL/PHENOL 1 EACH UD MM PRN (13:06)
[2018-04-03] MEDS ORDERED: MAGNESIUM HYDROX 2400MG/30ML ORAL SUSPENSION 30 ML CUP PO PRN (13:06)
[2018-04-03] MEDS ORDERED: IBUPROFEN 400 MG TABLET (FP) PO PRN (13:06)
[2018-04-03] MEDS ORDERED: MAGNESIUM CITRATE 300 ML BOTTLE PO PRN (13:06)
[2018-04-03] MEDS ORDERED: hydrOXYzine PAMOATE 25 MG CAPSULE (FP) PO PRN (13:06)
[2018-04-03] MEDS: NICOTINE 14 MG/24 HOURS TOPICAL PATCH TD SCH (14:29)
[2018-04-03] MEDS: CLOPIDOGREL BISULFATE 75 MG TABLET (FP) PO SCH (14:29)
[2018-04-03] MEDS: ASPIRIN 81 MG CHEWABLE TABLETS PO SCH (14:30)
[2018-04-03] MEDS: TRIAMCINOLONE ACET 0.1% CREAM 15 GM TUBE TP SCH ×2 (14:30→22:24)
--- NOTE | 2018-04-03 16:00 | HP ---
[facility] Rehab Assess/Revision - Admission History Admitted to Rehab [facility] Date of Admission to Rehab: 04/03/18 - Findings Detox History & Physical reviewed: Yes Concur with findings: Yes Comments/Additional Findings: PT COMPLETED DETOX TODAY AND REFERRED TO REHAB. ALERT O X 3. NAD. Inpatient Rehab Admission - Initial Determination Are CD services needed?: Yes Free of communicable disease: Yes Not in need of hospitalization: Yes - Rehab Admission Criteria Patient is meeting Inpatient Rehab admission criteria:: Yes
[2018-04-03] MEDS ORDERED: MELATONIN 5 MG TABLETS PO PRN (22:00)
[2018-04-03] MEDS: THIAMINE HCL 100 MG TABLET (FP) PO SCH (22:24)
--- NOTE | 2018-04-04 06:27 | HP ---
Psychiatrist Admission - Data Date of interview: 04/04/18 Admission source: 3N Identifying data: This is the first [facility] admission for this 52 years old single male, unemployed on food stamp , homeless Medical History: Significant for cad x2, psoriasis, hypertension, dyslipidemia and history of orthosurgery for fracture left tibia in 2011. Smokes 10 cigarettes daily Psychiatric History: Patient reports that he started feeling depressed after August 09, 2001 when he lost his brother in the [place]. He said for 7-8 months he was feeling so depressed that he could not function well at his job. He however did not seek any medical attention at the time. In the Spring 2016 he was started on Paxil by his primary care physician for depression. Claims depression stemmed for lost of his job, manager terminal relationship, addiction and homelessness. In the Summer 2016 he was admitted to [facility] in [place] for suicidal ideation for 14 days and referred to inpt rehab in the same facility for another 14 days. During his entire stay there, he was prescribed Paxil. Told underwriter, following his discharge from the rehab, he was not fully compliant with medication. Reports 2 months ago, he was admitted to [facility] for suicidal ideations and was started on Prozac 20 mg/day. He was discharged after 10 days and referred to this facility for inpatient rehab but did not follow discharge instruction. Instead, he relapsed using alcohol and drug and stopped taking medication. He claims that he had adverse-effects(drowsiness, confusion) from the medication. He was seen by MIYA Weber on 03/31/18 while in detox but declined to resume medication. He told underwriter that he believes that his depression is substance induced. Denies history of previous suicidal attempt. At present, reports feeling depressed, anxious and sleeping poorly. He wants nothing to do with medication even for sleep. Physical/Sexual Abuse/Trauma History: Denies history of emotional, physical or sexual abuse as Dv relationship. Reports serving in the [employer] from 188- . His discharge was general other than honorable Additional Comment: Denies criminal history Vital Signs: Vital Signs - 24 hr 04/04/18 03:30 Respiratory 20 Rate Allergies/Adverse Reactions: Allergies Allergy/AdvReac Type Severity Reaction Status Date / Time levofloxacin [From Levaquin] Allergy Rash Verified 03/30/18 18:04 Date of last physical exam: 03/30/18 Concur with the findings of this exam: Yes - Substance Abuse/Tx History Hx Alcohol Use: Yes Hx Substance Use: Yes Substance Use Type: Alcohol (Started drinking alcohol at age 13 consumes one pint of jemeson & 10x 12oz of coors light daily. Last drank on 03/30/18), Cocaine (Started smoking crack cocaine at age 49, consumes 1.5 gram daily. Last smoked on 03/29/18), Heroin (Started using heroin at age 49, consumes half a gram daily. Last used on 03/30/18) Hx Substance Use Treatment: Yes (2previous inpt detox and 5 inpt rehab admissions) Mental Status Exam - Mental Status Exam Alert and Oriented to: Time, Place, Person Cognitive Function: Fair Patient Appearance: Disheveled Mood: Depressed, Anxious Affect: Appropriate Patient Behavior: Cooperative Speech Pattern: Clear Voice Loudness: Normal Thought Process: Intact, Goal Oriented Thought Disorder: Not Present Hallucinations: Denies Suicidal Ideation: Denies Homicidal Ideation: Denies Insight/Judgement: Fair Sleep: Poorly Appetite: Good Muscle strength/Tone: Normal Gait/Station: Normal Psychiatric Findings - Problem List ([place] 1, 2,3) (1) Alcohol dependence Current Visit: Yes Status: Acute (2) Opioid dependence Current Visit: No Status: Acute Qualifiers: Substance use status: uncomplicated Qualified Code(s): F11.20 - Opioid dependence, uncomplicated (3) Cocaine dependence Current Visit: Yes Status: Acute (4) Nicotine dependence Current Visit: No Status: Chronic Qualifiers: Nicotine product type: cigarettes Substance use status: in withdrawal Qualified Code(s): F17.213 - Nicotine dependence, cigarettes, with withdrawal (5) Substance induced mood disorder Current Visit: No Status: Acute (6) MDD (major depressive disorder), recurrent episode, moderate Current Visit: Yes Status: Ruled-out (7) Substance-induced sleep disorder Current Visit: Yes Status: Acute (8) History of heart artery stent Current Visit: No Status: Chronic (9) Psoriasis Current Visit: No Status: Chronic (10) HTN (hypertension) Current Visit: Yes Status: Chronic (11) HLD (hyperlipidemia) Current Visit: Yes Status: Chronic - Initial Treatment Plan Initial Treatment Plan: Monitor progress
[2018-04-04] MEDS: TRIAMCINOLONE ACET 0.1% CREAM 15 GM TUBE TP SCH ×3 (06:31→21:07)
[2018-04-04] MEDS: NICOTINE 14 MG/24 HOURS TOPICAL PATCH TD SCH (10:29)
[2018-04-04] MEDS: CLOPIDOGREL BISULFATE 75 MG TABLET (FP) PO SCH (10:29)
[2018-04-04] MEDS: PRENATAL VITAMINS W/ FOLIC ACID TABLET (FP) PO SCH (10:29)
[2018-04-04] MEDS: ASPIRIN 81 MG CHEWABLE TABLETS PO SCH (10:29)
--- NOTE | 2018-04-04 11:42 | PN ---
[facility] Progress Note Note: PATIENT PRESENTS WITH REQUEST FOR SHAMPOO FOR PSORIASIS. PATIENT ALERT AND ORIENTED X 3. IN NO ACUTE DISTRESS. PE: MULTIPLE RED, SCALY PLAQUES ON ARMS, LEGS AND SCALP. WILL ORDER KETOCONAZOLE SHAMPOO BID. WILL CONTINUE TO MONITOR CLINICALLY.
[2018-04-04] MEDS: KETOCONAZOLE 2 % SHAMPOO 120 ML BOTTLE TP SCH (13:54)
[2018-04-04] MEDS: THIAMINE HCL 100 MG TABLET (FP) PO SCH (21:07)
[2018-04-05] MEDS: TRIAMCINOLONE ACET 0.1% CREAM 15 GM TUBE TP SCH ×3 (06:32→21:30)
[2018-04-05] MEDS: ASPIRIN 81 MG CHEWABLE TABLETS PO SCH (10:13)
[2018-04-05] MEDS: PRENATAL VITAMINS W/ FOLIC ACID TABLET (FP) PO SCH (10:13)
[2018-04-05] MEDS: CLOPIDOGREL BISULFATE 75 MG TABLET (FP) PO SCH (10:13)
[2018-04-05] MEDS: NICOTINE 14 MG/24 HOURS TOPICAL PATCH TD SCH (10:14)
[2018-04-05] MEDS: MOMETASONE FUROATE 0.1% TP SCH (17:58)
[2018-04-05] MEDS: THIAMINE HCL 100 MG TABLET (FP) PO SCH (21:29)
[2018-04-06] MEDS: TRIAMCINOLONE ACET 0.1% CREAM 15 GM TUBE TP SCH ×2 (06:25→22:19)
[2018-04-06] MEDS: ASPIRIN 81 MG CHEWABLE TABLETS PO SCH (10:36)
[2018-04-06] MEDS: PRENATAL VITAMINS W/ FOLIC ACID TABLET (FP) PO SCH (10:36)
[2018-04-06] MEDS: CLOPIDOGREL BISULFATE 75 MG TABLET (FP) PO SCH (10:37)
[2018-04-06] MEDS: NICOTINE 14 MG/24 HOURS TOPICAL PATCH TD SCH (10:37)
[2018-04-06] MEDS: MOMETASONE FUROATE 0.1% TP SCH (10:41)
[2018-04-06] MEDS ORDERED: COLLOIDAL OATMEAL 1 BAR EACH TP PRN (13:44)
[2018-04-06] MEDS ORDERED: PT OWN MED DRAWER 7, Y5N ONE (16:26)
[2018-04-06] MEDS: THIAMINE HCL 100 MG TABLET (FP) PO SCH (22:17)
[2018-04-06] MEDS: HALOBETASOL TP SCH (22:20)
[2018-04-07] MEDS: TRIAMCINOLONE ACET 0.1% CREAM 15 GM TUBE TP SCH ×4 (01:33→21:55)
[2018-04-07] MEDS: HALOBETASOL TP SCH ×3 (06:30→21:55)
[2018-04-07] MEDS: ASPIRIN 81 MG CHEWABLE TABLETS PO SCH (10:16)
[2018-04-07] MEDS: CLOPIDOGREL BISULFATE 75 MG TABLET (FP) PO SCH (10:16)
[2018-04-07] MEDS: NICOTINE 14 MG/24 HOURS TOPICAL PATCH TD SCH (10:16)
[2018-04-07] MEDS: PRENATAL VITAMINS W/ FOLIC ACID TABLET (FP) PO SCH (10:16)
[2018-04-07] MEDS: MOMETASONE FUROATE 0.1% TP SCH (10:18)
[2018-04-07] MEDS ORDERED: PT OWN MED DRAWER 7, Y5N ONE ×3 (10:20→20:31)
[2018-04-07] MEDS: KETOCONAZOLE 2 % SHAMPOO 120 ML BOTTLE TP SCH (13:56)
--- NOTE | 2018-04-07 19:32 | PN ---
[facility] Progress Note Note: Patient requested vitamin D screen , patient currently on parental vitamins qd. Reports the last time vitamin D screen was completed 2 years ago. Patient also requested stronger steroid cream for his psoriasis. Patient reports his doctor that treats his psoriasis advise him to abstain from alcohol. Patient also he reports while out patient was not taking psoriasis medication as prescribe. Aveeno soap was ordered and patient advised to take cool luke warm showers. Patient to continue halobetasol, mometasone and Triamcinolone prescribed by his provider outpatient. Patient advise to increase fluids followup with his PCP regarding vitamin D screen upon discharge and follow up with [employer] for his psoriasis upon discharge.
[2018-04-07] MEDS: THIAMINE HCL 100 MG TABLET (FP) PO SCH (21:55)
[2018-04-08] MEDS ORDERED: PT OWN MED DRAWER 7, Y5N ONE (06:33)
[2018-04-08] MEDS: TRIAMCINOLONE ACET 0.1% CREAM 15 GM TUBE TP SCH ×3 (06:36→22:00)
[2018-04-08] MEDS: HALOBETASOL TP SCH ×3 (06:36→22:00)
[2018-04-08] MEDS: ASPIRIN 81 MG CHEWABLE TABLETS PO SCH (10:25)
[2018-04-08] MEDS: PRENATAL VITAMINS W/ FOLIC ACID TABLET (FP) PO SCH (10:25)
[2018-04-08] MEDS: NICOTINE 14 MG/24 HOURS TOPICAL PATCH TD SCH (10:25)
[2018-04-08] MEDS: CLOPIDOGREL BISULFATE 75 MG TABLET (FP) PO SCH (10:25)
[2018-04-08] MEDS: MOMETASONE FUROATE 0.1% TP SCH (10:25)
--- NOTE | 2018-04-08 15:59 | PN ---
S Progress Note Note: Patient request to be seen for swelling of legs. Denies CP, SOB and Dizziness. Vital Signs Temperature 97.5 F L 04/08/18 07:48 Pulse Rate 58 L 04/08/18 07:48 Respiratory Rate 18 04/08/18 07:48 Blood Pressure 140/73 04/08/18 07:48 O2 Sat by Pulse Oximetry (%) Laboratory Tests 04/04/18 04/04/18 07:00 08:30 Hep C Ab Diagnostic <0.1 Liver Fibrosis Interp HIV 1&2 Antibody Screen Negative HIV P24 Antigen Negative Obj: Patient is alert and oriented x 3. In no acute distress. Skin: +multiple psoriatic plaques on skin Ext: trace pedal edema. Full ROM. A/P: Trace edema Pt recommended to elevated legs while in bed continue to monitor clinically
[2018-04-08] MEDS: THIAMINE HCL 100 MG TABLET (FP) PO SCH (22:00)
[2018-04-09] MEDS: ACETAMINOPHEN 325 MG TABLET (FP) PO PRN (04:46)
[2018-04-09] MEDS: HALOBETASOL TP SCH ×3 (06:00→21:09)
[2018-04-09] MEDS: TRIAMCINOLONE ACET 0.1% CREAM 15 GM TUBE TP SCH ×3 (06:00→21:07)
[2018-04-09] MEDS: CLOPIDOGREL BISULFATE 75 MG TABLET (FP) PO SCH (10:42)
[2018-04-09] MEDS: NICOTINE 14 MG/24 HOURS TOPICAL PATCH TD SCH (10:42)
[2018-04-09] MEDS: ASPIRIN 81 MG CHEWABLE TABLETS PO SCH (10:43)
[2018-04-09] MEDS: PRENATAL VITAMINS W/ FOLIC ACID TABLET (FP) PO SCH (10:43)
[2018-04-09] MEDS: MOMETASONE FUROATE 0.1% TP SCH (10:44)
[2018-04-09] MEDS: THIAMINE HCL 100 MG TABLET (FP) PO SCH (21:07)
[2018-04-10] MEDS: HALOBETASOL TP SCH ×3 (06:18→21:18)
[2018-04-10] MEDS: TRIAMCINOLONE ACET 0.1% CREAM 15 GM TUBE TP SCH ×3 (06:18→21:18)
[2018-04-10] MEDS: NICOTINE 14 MG/24 HOURS TOPICAL PATCH TD SCH (10:24)
[2018-04-10] MEDS: MOMETASONE FUROATE 0.1% TP SCH (10:24)
[2018-04-10] MEDS: PRENATAL VITAMINS W/ FOLIC ACID TABLET (FP) PO SCH (10:24)
[2018-04-10] MEDS: CLOPIDOGREL BISULFATE 75 MG TABLET (FP) PO SCH (10:24)
[2018-04-10] MEDS: ASPIRIN 81 MG CHEWABLE TABLETS PO SCH (10:24)
[2018-04-10] MEDS: KETOCONAZOLE 2 % SHAMPOO 120 ML BOTTLE TP SCH (14:55)
[2018-04-10] MEDS ORDERED: PT OWN MED DRAWER 7, Y5N ONE (20:49)
[2018-04-10] MEDS: THIAMINE HCL 100 MG TABLET (FP) PO SCH (21:17)
[2018-04-11] MEDS: ACETAMINOPHEN 325 MG TABLET (FP) PO PRN (01:25)
[2018-04-11] MEDS: HALOBETASOL TP SCH ×3 (06:33→21:55)
[2018-04-11] MEDS: TRIAMCINOLONE ACET 0.1% CREAM 15 GM TUBE TP SCH ×3 (06:33→21:55)
[2018-04-11] MEDS ORDERED: PT OWN MED DRAWER 7, Y5N ONE ×2 (10:02→14:41)
[2018-04-11] MEDS: CLOPIDOGREL BISULFATE 75 MG TABLET (FP) PO SCH (10:19)
[2018-04-11] MEDS: PRENATAL VITAMINS W/ FOLIC ACID TABLET (FP) PO SCH (10:19)
[2018-04-11] MEDS: ASPIRIN 81 MG CHEWABLE TABLETS PO SCH (10:19)
[2018-04-11] MEDS: NICOTINE 14 MG/24 HOURS TOPICAL PATCH TD SCH (10:19)
[2018-04-11] MEDS: MOMETASONE FUROATE 0.1% TP SCH (10:19)
[2018-04-11] MEDS: THIAMINE HCL 100 MG TABLET (FP) PO SCH (21:55)
[2018-04-12] MEDS ORDERED: PT OWN MED DRAWER 7, Y5N ONE ×3 (04:35→22:15)
[2018-04-12] MEDS: TRIAMCINOLONE ACET 0.1% CREAM 15 GM TUBE TP SCH ×3 (06:40→22:13)
[2018-04-12] MEDS: HALOBETASOL TP SCH ×3 (06:42→22:14)
[2018-04-12] MEDS: ASPIRIN 81 MG CHEWABLE TABLETS PO SCH (10:32)
[2018-04-12] MEDS: PRENATAL VITAMINS W/ FOLIC ACID TABLET (FP) PO SCH (10:32)
[2018-04-12] MEDS: CLOPIDOGREL BISULFATE 75 MG TABLET (FP) PO SCH (10:32)
[2018-04-12] MEDS: MOMETASONE FUROATE 0.1% TP SCH (10:33)
[2018-04-12] MEDS: NICOTINE 14 MG/24 HOURS TOPICAL PATCH TD SCH (10:33)
[2018-04-12] MEDS: THIAMINE HCL 100 MG TABLET (FP) PO SCH (22:12)
[2018-04-13] MEDS: ACETAMINOPHEN 325 MG TABLET (FP) PO PRN (00:56)
[2018-04-13] MEDS: TRIAMCINOLONE ACET 0.1% CREAM 15 GM TUBE TP SCH ×3 (06:16→21:35)
[2018-04-13] MEDS: HALOBETASOL TP SCH ×3 (07:01→21:37)
[2018-04-13] MEDS: CLOPIDOGREL BISULFATE 75 MG TABLET (FP) PO SCH (10:33)
[2018-04-13] MEDS: NICOTINE 14 MG/24 HOURS TOPICAL PATCH TD SCH (10:33)
[2018-04-13] MEDS: ASPIRIN 81 MG CHEWABLE TABLETS PO SCH (10:33)
[2018-04-13] MEDS: PRENATAL VITAMINS W/ FOLIC ACID TABLET (FP) PO SCH (10:33)
[2018-04-13] MEDS: MOMETASONE FUROATE 0.1% TP SCH (10:33)
[2018-04-13] MEDS: KETOCONAZOLE 2 % SHAMPOO 120 ML BOTTLE TP SCH (12:46)
[2018-04-13] MEDS: MAG HYDROX/AL HYDROX/SIMETH 30 ML UNIT-DOSE CUP PO PRN (13:44)
[2018-04-13] MEDS: THIAMINE HCL 100 MG TABLET (FP) PO SCH (21:37)
[2018-04-13] MEDS ORDERED: PT OWN MED DRAWER 7, Y5N ONE (21:37)
[2018-04-14] MEDS: HALOBETASOL TP SCH ×3 (06:35→21:59)
[2018-04-14] MEDS: TRIAMCINOLONE ACET 0.1% CREAM 15 GM TUBE TP SCH ×3 (06:35→21:58)
[2018-04-14] MEDS: PRENATAL VITAMINS W/ FOLIC ACID TABLET (FP) PO SCH (10:17)
[2018-04-14] MEDS: ASPIRIN 81 MG CHEWABLE TABLETS PO SCH (10:17)
[2018-04-14] MEDS: CLOPIDOGREL BISULFATE 75 MG TABLET (FP) PO SCH (10:17)
[2018-04-14] MEDS: MOMETASONE FUROATE 0.1% TP SCH (10:20)
[2018-04-14] MEDS: NICOTINE 14 MG/24 HOURS TOPICAL PATCH TD SCH (10:20)
[2018-04-14] MEDS ORDERED: PT OWN MED DRAWER 7, Y5N ONE ×2 (15:55→20:51)
[2018-04-14] MEDS: THIAMINE HCL 100 MG TABLET (FP) PO SCH (22:00)
[2018-04-15] MEDS ORDERED: PT OWN MED DRAWER 7, Y5N ONE ×4 (05:19→17:29)
[2018-04-15] MEDS: TRIAMCINOLONE ACET 0.1% CREAM 15 GM TUBE TP SCH (06:45)
[2018-04-15] MEDS: HALOBETASOL TP SCH ×3 (08:28→22:33)
[2018-04-15] MEDS: CLOPIDOGREL BISULFATE 75 MG TABLET (FP) PO SCH (09:57)
[2018-04-15] MEDS: PRENATAL VITAMINS W/ FOLIC ACID TABLET (FP) PO SCH (09:57)
[2018-04-15] MEDS: ASPIRIN 81 MG CHEWABLE TABLETS PO SCH (09:57)
[2018-04-15] MEDS: NICOTINE 14 MG/24 HOURS TOPICAL PATCH TD SCH (09:58)
[2018-04-15] MEDS: MOMETASONE FUROATE 0.1% TP SCH (09:58)
[2018-04-15] MEDS: VITAMINS A AND D TOPICAL OINTMENT 60 GM TUBE TP SCH ×2 (14:25→17:48)
[2018-04-15] MEDS: THIAMINE HCL 100 MG TABLET (FP) PO SCH (22:32)
[2018-04-15] MEDS: TRIAMCINOLONE ACET 0.1% OINT 15 GM TUBE TP SCH (22:33)
[2018-04-16] MEDS: ACETAMINOPHEN 325 MG TABLET (FP) PO PRN (01:12)
[2018-04-16] MEDS: VITAMINS A AND D TOPICAL OINTMENT 60 GM TUBE TP SCH ×4 (01:43→16:00)
[2018-04-16] MEDS ORDERED: PT OWN MED DRAWER 7, Y5N ONE ×2 (03:01→09:07)
[2018-04-16] MEDS: HALOBETASOL TP SCH ×3 (06:41→22:24)
[2018-04-16] MEDS: ASPIRIN 81 MG CHEWABLE TABLETS PO SCH (10:00)
[2018-04-16] MEDS: MOMETASONE FUROATE 0.1% TP SCH (10:00)
[2018-04-16] MEDS: TRIAMCINOLONE ACET 0.1% OINT 15 GM TUBE TP SCH ×2 (10:00→22:23)
[2018-04-16] MEDS: PRENATAL VITAMINS W/ FOLIC ACID TABLET (FP) PO SCH (10:00)
[2018-04-16] MEDS: CLOPIDOGREL BISULFATE 75 MG TABLET (FP) PO SCH (10:00)
[2018-04-16] MEDS: NICOTINE 14 MG/24 HOURS TOPICAL PATCH TD SCH (10:00)
[2018-04-16] MEDS: KETOCONAZOLE 2 % SHAMPOO 120 ML BOTTLE TP SCH (14:02)
[2018-04-16] MEDS: THIAMINE HCL 100 MG TABLET (FP) PO SCH (22:22)
[2018-04-17] MEDS: VITAMINS A AND D TOPICAL OINTMENT 60 GM TUBE TP SCH ×4 (01:03→18:56)
[2018-04-17] MEDS: MAG HYDROX/AL HYDROX/SIMETH 30 ML UNIT-DOSE CUP PO PRN (01:11)
[2018-04-17] MEDS ORDERED: PT OWN MED DRAWER 7, Y5N ONE ×2 (02:46→09:01)
[2018-04-17] MEDS: HALOBETASOL TP SCH ×3 (06:25→22:34)
[2018-04-17] MEDS: ASPIRIN 81 MG CHEWABLE TABLETS PO SCH (10:17)
[2018-04-17] MEDS: PRENATAL VITAMINS W/ FOLIC ACID TABLET (FP) PO SCH (10:18)
[2018-04-17] MEDS: NICOTINE 14 MG/24 HOURS TOPICAL PATCH TD SCH (10:18)
[2018-04-17] MEDS: CLOPIDOGREL BISULFATE 75 MG TABLET (FP) PO SCH (10:18)
[2018-04-17] MEDS: TRIAMCINOLONE ACET 0.1% OINT 15 GM TUBE TP SCH ×2 (10:18→22:34)
[2018-04-17] MEDS: MOMETASONE FUROATE 0.1% TP SCH (10:20)
[2018-04-17] MEDS: THIAMINE HCL 100 MG TABLET (FP) PO SCH (22:33)
[2018-04-18] MEDS: VITAMINS A AND D TOPICAL OINTMENT 60 GM TUBE TP SCH ×4 (00:43→22:59)
[2018-04-18] MEDS: HALOBETASOL TP SCH ×3 (07:01→23:00)
[2018-04-18] MEDS: PRENATAL VITAMINS W/ FOLIC ACID TABLET (FP) PO SCH (10:20)
[2018-04-18] MEDS: CLOPIDOGREL BISULFATE 75 MG TABLET (FP) PO SCH (10:20)
[2018-04-18] MEDS: ASPIRIN 81 MG CHEWABLE TABLETS PO SCH (10:21)
[2018-04-18] MEDS: NICOTINE 14 MG/24 HOURS TOPICAL PATCH TD SCH (10:21)
[2018-04-18] MEDS: MOMETASONE FUROATE 0.1% TP SCH (10:23)
[2018-04-18] MEDS: TRIAMCINOLONE ACET 0.1% OINT 15 GM TUBE TP SCH ×2 (15:06→23:44)
[2018-04-18] MEDS: THIAMINE HCL 100 MG TABLET (FP) PO SCH (22:59)
[2018-04-19] MEDS: ACETAMINOPHEN 325 MG TABLET (FP) PO PRN (01:36)
[2018-04-19] MEDS: HALOBETASOL TP SCH ×3 (06:17→22:06)
[2018-04-19] MEDS: VITAMINS A AND D TOPICAL OINTMENT 60 GM TUBE TP SCH ×5 (06:17→23:24)
[2018-04-19] MEDS: PRENATAL VITAMINS W/ FOLIC ACID TABLET (FP) PO SCH (10:29)
[2018-04-19] MEDS: ASPIRIN 81 MG CHEWABLE TABLETS PO SCH (10:29)
[2018-04-19] MEDS: CLOPIDOGREL BISULFATE 75 MG TABLET (FP) PO SCH (10:29)
[2018-04-19] MEDS: TRIAMCINOLONE ACET 0.1% OINT 15 GM TUBE TP SCH ×2 (10:30→22:05)
[2018-04-19] MEDS ORDERED: PT OWN MED DRAWER 7, Y5N ONE ×2 (10:33→20:59)
[2018-04-19] MEDS: NICOTINE 14 MG/24 HOURS TOPICAL PATCH TD SCH (10:34)
[2018-04-19] MEDS: MOMETASONE FUROATE 0.1% TP SCH (10:34)
[2018-04-19] MEDS: KETOCONAZOLE 2 % SHAMPOO 120 ML BOTTLE TP SCH (13:48)
[2018-04-19] MEDS: THIAMINE HCL 100 MG TABLET (FP) PO SCH (22:04)
[2018-04-20] MEDS: MAG HYDROX/AL HYDROX/SIMETH 30 ML UNIT-DOSE CUP PO PRN (00:20)
[2018-04-20] MEDS ORDERED: PT OWN MED DRAWER 7, Y5N ONE ×3 (09:13→22:13)
[2018-04-20] MEDS: PRENATAL VITAMINS W/ FOLIC ACID TABLET (FP) PO SCH (10:24)
[2018-04-20] MEDS: HALOBETASOL TP SCH ×3 (10:24→22:19)
[2018-04-20] MEDS: TRIAMCINOLONE ACET 0.1% OINT 15 GM TUBE TP SCH ×2 (10:24→21:58)
[2018-04-20] MEDS: ASPIRIN 81 MG CHEWABLE TABLETS PO SCH (10:24)
[2018-04-20] MEDS: VITAMINS A AND D TOPICAL OINTMENT 60 GM TUBE TP SCH ×3 (10:24→17:55)
[2018-04-20] MEDS: CLOPIDOGREL BISULFATE 75 MG TABLET (FP) PO SCH (10:24)
[2018-04-20] MEDS: NICOTINE 14 MG/24 HOURS TOPICAL PATCH TD SCH (10:25)
[2018-04-20] MEDS: MOMETASONE FUROATE 0.1% TP SCH (10:25)
--- NOTE | 2018-04-20 13:13 | PN ---
S Progress Note Note: Patient presents with spontaneous bruising to right posterior calf. Denies pain to legs, chest pain and SOB. Laboratory Tests 04/04/18 04/04/18 04/07/18 07:00 08:30 06:25 POC Glucometer 107 Hep C Ab Diagnostic <0.1 Liver Fibrosis Interp HIV 1&2 Antibody Screen Negative HIV P24 Antigen Negative 04/08/18 06:36 POC Glucometer 101 Hep C Ab Diagnostic Liver Fibrosis Interp HIV 1&2 Antibody Screen HIV P24 Antigen Laboratory Tests 04/04/18 04/04/18 04/07/18 07:00 08:30 06:25 POC Glucometer 107 Hep C Ab Diagnostic <0.1 Liver Fibrosis Interp HIV 1&2 Antibody Screen Negative HIV P24 Antigen Negative 04/08/18 06:36 POC Glucometer 101 Hep C Ab Diagnostic Liver Fibrosis Interp HIV 1&2 Antibody Screen HIV P24 Antigen Obj: General: alert and oriented x 3. In no acute distress. Skin: warm and dry. +ecchymosis right calf. No redness or swelling noted. Ext: no edema. Full ROM. + varicose veins present RLE. A/P: Ecchymosis Will check PT/INR and CMP as patient on Plavix and ASA continue to monitor clinically.
[2018-04-20] MEDS: THIAMINE HCL 100 MG TABLET (FP) PO SCH (21:59)
[2018-04-21] MEDS: VITAMINS A AND D TOPICAL OINTMENT 60 GM TUBE TP SCH ×4 (00:37→18:05)
[2018-04-21] MEDS: HALOBETASOL TP SCH ×3 (06:15→22:13)
[2018-04-21] MEDS: CLOPIDOGREL BISULFATE 75 MG TABLET (FP) PO SCH (10:08)
[2018-04-21] MEDS: ASPIRIN 81 MG CHEWABLE TABLETS PO SCH (10:08)
[2018-04-21] MEDS: PRENATAL VITAMINS W/ FOLIC ACID TABLET (FP) PO SCH (10:08)
[2018-04-21] MEDS: TRIAMCINOLONE ACET 0.1% OINT 15 GM TUBE TP SCH ×2 (10:09→22:11)
[2018-04-21] MEDS: NICOTINE 14 MG/24 HOURS TOPICAL PATCH TD SCH (10:10)
[2018-04-21] MEDS: MOMETASONE FUROATE 0.1% TP SCH (10:10)
[2018-04-21 14:06] LABS: CHLORIDE 106 mmol/L (98-107); POTASSIUM 4.2 mmol/L (3.5-5.1); SODIUM 142 mmol/L (136-145)
[2018-04-21 14:28] LABS: ALK PHOS 72 U/L (45-117); ANION GAP 8 (8-16); BILIRUBIN,TOTAL 0.8 mg/dL (0.2-1.0); BLOOD UREA NITROGEN 16 mg/dL (7-18); CALCIUM 8.7 mg/dL (8.5-10.1); CO2 28 mmol/L (21-32); CREATININE 0.9 mg/dL (0.7-1.3); GLUCOSE,RANDOM 121 mg/dL (74-106); SGOT/AST 14 U/L (15-37); SGPT/ALT 31 U/L (12-78); TOT PROT 7.1 g/dl (6.4-8.2)
[2018-04-21 14:43] LABS: INR 1.03 (0.82-1.09); PROTHROMBIN TIME (PATIENT) 11.6 SEC (9.7-13.0)
[2018-04-21] MEDS: ACETAMINOPHEN 325 MG TABLET (FP) PO PRN (18:41)
[2018-04-21] MEDS: THIAMINE HCL 100 MG TABLET (FP) PO SCH (22:12)
[2018-04-22] MEDS: VITAMINS A AND D TOPICAL OINTMENT 60 GM TUBE TP SCH ×4 (06:00→17:45)
[2018-04-22] MEDS: HALOBETASOL TP SCH ×3 (06:00→22:39)
[2018-04-22] MEDS ORDERED: PT OWN MED DRAWER 7, Y5N ONE ×2 (09:18→20:45)
[2018-04-22] MEDS: PRENATAL VITAMINS W/ FOLIC ACID TABLET (FP) PO SCH (10:20)
[2018-04-22] MEDS: ASPIRIN 81 MG CHEWABLE TABLETS PO SCH (10:20)
[2018-04-22] MEDS: TRIAMCINOLONE ACET 0.1% OINT 15 GM TUBE TP SCH ×2 (10:21→22:39)
[2018-04-22] MEDS: NICOTINE 14 MG/24 HOURS TOPICAL PATCH TD SCH (10:21)
[2018-04-22] MEDS: CLOPIDOGREL BISULFATE 75 MG TABLET (FP) PO SCH (10:21)
[2018-04-22] MEDS: MOMETASONE FUROATE 0.1% TP SCH (10:21)
[2018-04-22] MEDS: KETOCONAZOLE 2 % SHAMPOO 120 ML BOTTLE TP SCH (14:09)
--- NOTE | 2018-04-22 16:13 | PN ---
S Progress Note Note: Labs reviewed. Patient is on Plavix and ASA. INR 1.03. CMP stable. No changes in medical treatment ordered. Continue to monitor clinically.
[2018-04-22] MEDS: THIAMINE HCL 100 MG TABLET (FP) PO SCH (22:39)
[2018-04-23] MEDS: VITAMINS A AND D TOPICAL OINTMENT 60 GM TUBE TP SCH ×4 (06:00→17:32)
[2018-04-23] MEDS: HALOBETASOL TP SCH ×3 (06:00→21:25)
[2018-04-23] MEDS ORDERED: PT OWN MED DRAWER 7, Y5N ONE (09:21)
[2018-04-23] MEDS: NICOTINE 14 MG/24 HOURS TOPICAL PATCH TD SCH (10:26)
[2018-04-23] MEDS: CLOPIDOGREL BISULFATE 75 MG TABLET (FP) PO SCH (10:26)
[2018-04-23] MEDS: ASPIRIN 81 MG CHEWABLE TABLETS PO SCH (10:26)
[2018-04-23] MEDS: PRENATAL VITAMINS W/ FOLIC ACID TABLET (FP) PO SCH (10:26)
[2018-04-23] MEDS: TRIAMCINOLONE ACET 0.1% OINT 15 GM TUBE TP SCH ×2 (10:27→21:24)
[2018-04-23] MEDS: MOMETASONE FUROATE 0.1% TP SCH (10:27)
[2018-04-23] MEDS: THIAMINE HCL 100 MG TABLET (FP) PO SCH (21:26)
[2018-04-24] MEDS: HALOBETASOL TP SCH ×3 (06:55→21:49)
[2018-04-24] MEDS: VITAMINS A AND D TOPICAL OINTMENT 60 GM TUBE TP SCH ×5 (06:55→23:53)
[2018-04-24] MEDS: ASPIRIN 81 MG CHEWABLE TABLETS PO SCH (10:31)
[2018-04-24] MEDS: PRENATAL VITAMINS W/ FOLIC ACID TABLET (FP) PO SCH (10:31)
[2018-04-24] MEDS: CLOPIDOGREL BISULFATE 75 MG TABLET (FP) PO SCH (10:31)
[2018-04-24] MEDS: NICOTINE 14 MG/24 HOURS TOPICAL PATCH TD SCH (10:32)
[2018-04-24] MEDS: TRIAMCINOLONE ACET 0.1% OINT 15 GM TUBE TP SCH ×2 (10:33→21:49)
[2018-04-24] MEDS: MOMETASONE FUROATE 0.1% TP SCH (10:33)
[2018-04-24] MEDS ORDERED: PT OWN MED DRAWER 7, Y5N ONE ×2 (10:35→21:51)
[2018-04-24] MEDS: MAG HYDROX/AL HYDROX/SIMETH 30 ML UNIT-DOSE CUP PO PRN (15:03)
[2018-04-24] MEDS: THIAMINE HCL 100 MG TABLET (FP) PO SCH (21:49)
[2018-04-25] MEDS ORDERED: PT OWN MED DRAWER 7, Y5N ONE ×3 (03:10→12:00)
[2018-04-25] MEDS: HALOBETASOL TP SCH ×3 (06:46→21:51)
[2018-04-25] MEDS: VITAMINS A AND D TOPICAL OINTMENT 60 GM TUBE TP SCH ×3 (06:46→17:13)
[2018-04-25] MEDS: CLOPIDOGREL BISULFATE 75 MG TABLET (FP) PO SCH (10:24)
[2018-04-25] MEDS: MOMETASONE FUROATE 0.1% TP SCH (10:24)
[2018-04-25] MEDS: PRENATAL VITAMINS W/ FOLIC ACID TABLET (FP) PO SCH (10:24)
[2018-04-25] MEDS: NICOTINE 14 MG/24 HOURS TOPICAL PATCH TD SCH (10:24)
[2018-04-25] MEDS: TRIAMCINOLONE ACET 0.1% OINT 15 GM TUBE TP SCH ×2 (10:24→21:51)
[2018-04-25] MEDS: ASPIRIN 81 MG CHEWABLE TABLETS PO SCH (10:24)
[2018-04-25] MEDS: KETOCONAZOLE 2 % SHAMPOO 120 ML BOTTLE TP SCH (13:33)
[2018-04-25] MEDS: THIAMINE HCL 100 MG TABLET (FP) PO SCH (21:51)
[2018-04-26] MEDS: VITAMINS A AND D TOPICAL OINTMENT 60 GM TUBE TP SCH ×2 (00:14→06:47)
[2018-04-26] MEDS: ACETAMINOPHEN 325 MG TABLET (FP) PO PRN (01:12)
[2018-04-26] MEDS: HALOBETASOL TP SCH (06:47)
[2018-04-26 07:10] VITALS: BP 134/71; PULSE 56; TEMP 97.5
[2018-04-26] MEDS: ASPIRIN 81 MG CHEWABLE TABLETS PO SCH (09:03)
[2018-04-26] MEDS: CLOPIDOGREL BISULFATE 75 MG TABLET (FP) PO SCH (09:03)
[2018-04-26] MEDS: PRENATAL VITAMINS W/ FOLIC ACID TABLET (FP) PO SCH (09:03)
[2018-04-26] MEDS: NICOTINE 14 MG/24 HOURS TOPICAL PATCH TD SCH (09:03)
[2018-04-26] MEDS: TRIAMCINOLONE ACET 0.1% OINT 15 GM TUBE TP SCH (09:06)
[2018-04-26] MEDS: MOMETASONE FUROATE 0.1% TP SCH (09:09)
[2018-04-26] MEDS ORDERED: PT OWN MED DRAWER 7, Y5N ONE (09:12)
--- NOTE | 2018-04-26 09:29 | PN ---
Psychiatric Progress Note Vital Signs: Vital Signs Period Temp Pulse Resp BP Sys/Alvarez Pulse Ox Last 24 Hr 97.5 F 56 18-18 134/71 Date of Session: 04/26/18 Chief Complaint:: "Discharge." HPI: Patient admitted to [facility] inpatient rehabilitation for alcohol and cocaine dependence. ROS: Significant for cad x2, psoriasis, hypertension, dyslipidemia and history of orthosurgery for fracture left tibia in 2011. Smokes 10 cigarettes daily Current Medications: Active Medications Generic Name Dose Route Start Last Admin Trade Name Freq PRN Reason Stop Dose Admin Acetaminophen 650 mg 04/03/18 13:06 04/26/18 01:12 Tylenol - PO 650 mg Q4H PRN Administration FEVER Al Hydroxide/Mg Hydroxide 30 ml 04/03/18 13:06 04/24/18 15:03 Mylanta Oral Suspension - PO 30 ml Q6H PRN Administration DYSPEPSIA Aspirin 81 mg 04/03/18 13:15 04/26/18 09:03 Asa - PO 81 mg DAILY JACK Administration Clopidogrel Bisulfate 75 mg 04/03/18 13:15 04/26/18 09:03 Plavix - PO 75 mg DAILY JACK Administration Colloidal Oatmeal 1 applic 04/06/18 13:44 04/08/18 22:01 Aveeno Soap - TP 1 applic DAILY PRN Administration HYGEINE Eucalyptus/Menthol/Phenol/Sorbitol 1 each 04/03/18 13:06 Cepastat Lozenge - MM Q4H PRN SORE THROAT Guaifenesin 10 ml 04/03/18 13:06 Robitussin Dm - PO Q6H PRN COUGH Hydroxyzine Pamoate 25 mg 04/03/18 13:06 Vistaril - PO Q4H PRN AGITATION Ketoconazole 1 applic 04/04/18 13:00 04/25/18 13:33 Nizoral 2% Shampoo - TP 1 applic Q3D JACK Administration Loperamide HCl 4 mg 04/03/18 13:06 Imodium - PO Q6H PRN DIARRHEA Magnesium Citrate 300 ml 04/03/18 13:06 Citroma - PO Q48H PRN CONSTIPATION Magnesium Hydroxide 30 ml 04/03/18 13:06 Milk Of Magnesia - PO DAILY PRN CONSTIPATION Melatonin 5 mg 04/03/18 22:00 Melatonin PO HS PRN INSOMNIA Nicotine 14 mg 04/03/18 13:15 04/26/18 09:03 Nicoderm Patch - TD Not Given DAILY JACK Nicotine Polacrilex 2 mg 04/03/18 13:06 Nicorette Gum - BUC Q2H PRN NICOTINE REPLACEMENT RX Non-Formulary Medication 1 applic 04/05/18 16:30 04/26/18 09:09 Mometasone Furoate 0.1% Tp Oin TP Not Given DAILY JACK Patient's Own 0 grams 04/06/18 22:00 04/26/18 06:47 Medication (Non- TP Not Given Formulary) ( TID JACK Halobetasol 0.05% Oin) Multivit/Folic Acid/Iron 1 tab 04/04/18 10:00 04/26/18 09:03 Vitamins (Sjr) - PO 1 tab DAILY JACK Administration Pseudoephedrine/Triprolidine 1 combo 04/03/18 13:06 Actifed - PO TID PRN NASAL CONGESTION Thiamine HCl 100 mg 04/03/18 22:00 04/25/18 21:51 Vitamin B1 - PO 100 mg HS JACK Administration Triamcinolone Acetonide 1 applic 04/15/18 22:00 04/26/18 09:06 Aristocort 0.1% Ointment - TP 1 applic BID JACK Administration Vitamin A/Vitamin D 1 applic 04/15/18 12:00 04/26/18 06:47 Vitamin A & D Top Oint - TP Not Given Q6HPO JACK Medication(s) Change(s): No. Current Side Effect: No Lab tests ordered: No Lab tests reviewed: Yes Provider note:: Patient will complete the inpatient rehabilitation program on . He has met his treatment goals and will address his issues at [facility] [place] outpatient clinic. Patient is able to understand the consequences of his addiction and the need to make positive changes to his lifestyle in order to maintain abstinence. Pt. is stable for discharge on . Total face to face time:: 35 Mental Status Exam - Mental Status Exam Alert and Oriented to: Time, Place, Person Cognitive Function: Good Patient Appearance: Well Groomed Mood: Hopeful Affect: Appropriate Patient Behavior: Appropriate, Cooperative Speech Pattern: Clear, Appropriate Voice Loudness: Normal Thought Process: Intact, Goal Oriented Thought Disorder: Not Present Hallucinations: Denies Suicidal Ideation: Denies Homicidal Ideation: Denies Insight/Judgement: Good Sleep: Well Appetite: Good Muscle strength/Tone: Normal Gait/Station: Normal Psychiatric Treatment Plan - Problem List (1) Alcohol dependence Current Visit: Yes (2) Substance-induced sleep disorder Current Visit: Yes (3) MDD (major depressive disorder), recurrent episode, moderate Current Visit: Yes (4) Cocaine dependence Current Visit: No Qualifiers: Substance use status: uncomplicated Qualified Code(s): F14.20 - Cocaine dependence, uncomplicated (5) Opioid dependence Current Visit: No Qualifiers: Substance use status: uncomplicated Qualified Code(s): F11.20 - Opioid dependence, uncomplicated (6) Substance induced mood disorder Current Visit: No (7) Nicotine dependence Current Visit: No Qualifiers: Nicotine product type: cigarettes Substance use status: in withdrawal Qualified Code(s): F17.213 - Nicotine dependence, cigarettes, with withdrawal
== END 2018-04-26 09:40 | disposition home or self-care (01) | DRG 772 ==
LOC: YASAS 12:31 → Y3W 12:33
PROVIDERS: ADMIT Psychiatry & Neurology Psychiatry; ATTEND Psychiatry & Neurology Psychiatry
PROC: HZ42ZZZ Group Counseling for Substance Abuse Treatment, Cognitive-Behavioral (ICD-10-PCS; principal; 2018-04-03)
DX: F11.20 Opioid dependence, uncomplicated (principal); F10.20 Alcohol dependence, uncomplicated; F14.20 Cocaine dependence, uncomplicated; F17.213 Nicotine dependence, cigarettes, with withdrawal; F19.282 Other psychoactive substance dependence with psychoactive substance-induced sleep disorder; F19.24 Other psychoactive substance dependence with psychoactive substance-induced mood disorder; I25.10 Atherosclerotic heart disease of native coronary artery without angina pectoris; I10 Essential (primary) hypertension; Z95.5 Presence of coronary angioplasty implant and graft; E78.5 Hyperlipidemia, unspecified; L40.9 Psoriasis, unspecified; R60.9 Edema, unspecified
CPT/HCPCS: 36415; 80053; 82962; 85610; 87389

== ENCOUNTER 2019-01-01 17:24 | Inpatient (IN) | payer OTHER ==
[2019-01-01 17:59] VITALS: BMI 32.6
--- NOTE | 2019-01-01 20:31 | HP ---
CIWA Score Nausea/Vomitin-Mild Nausea/No Vomiting Muscle Tremors: 3 Anxiety: 3 Agitation: 3 Paroxysmal Sweats: 1-Minimal Palms Moist Orientation: 0-Oriented Tacttile Disturbances: 0-None Auditory Disturbances: 0-None Visual Disturbances: 0-None Headache: 4-Moderately Severe CIWA-Ar Total Score: 15 - Admission Criteria OASAS Guidelines: Admission for Medically Managed Detox: Requires at least one of the followin. CIWA greater than 12 2. Seizures within the past 24 hours 3. Delirium tremens within the past 24 hours 4. Hallucinations within the past 24 hours 5. Acute intervention needed for co occurring medical disorder 6. Acute intervention needed for co occurring psychiatric disorder 7. Severe withdrawal that cannot be handled at a lower level of care (continued vomiting, continued diarrhea, abnormal vital signs) requiring intravenous medication and/or fluids 8. Admission ROS [facility] [employer] Chief Complaint: Alcohol withdrawal symptoms Allergies/Adverse Reactions: Allergies Allergy/AdvReac Type Severity Reaction Status Date / Time levofloxacin [From Levaquin] Allergy Rash Verified 01/01/19 18:13 History of Present Illness: 53 years old male with 40 years of alcohol dependence is seeking admission to detox. Patient was last detoxed at [facility] and reports 2 years of sobriety. Patient has medical history of hypertension, hyperlipidemia, depression, CAD with [address] He reports suicide attempt at age 16 and denies suicidal ideation at this time. Exam Limitations: No Limitations - Ebola screening Have you traveled outside of the country in the last 21 days: No Have you had contact with anyone from an Ebola affected area: No Have you been sick,other than usual withdrawal symptoms: No Do you have a fever: No - Review of Systems Constitutional: Loss of Appetite, Malaise, Night Sweats, Changes in sleep EENT: reports: Blurred Vision, Nose Congestion Respiratory: reports: No Symptoms reported Cardiac: reports: No Symptoms Reported GI: reports: Nausea, Poor Appetite, Poor Fluid Intake, Abdominal cramping : reports: No Symptoms Reported Musculoskeletal: reports: Back Pain, Muscle Pain Integumentary: reports: Dryness, Flushing Neuro: reports: Headache, Tremors Endocrine: reports: No Symptoms Reported Hematology: reports: No Symptoms Reported Psychiatric: reports: Anxious, Depressed Other Systems: Reviewed and Negative Patient History - Patient Medical History Hx Anemia: No Hx Asthma: No Hx Chronic Obstructive Pulmonary Disease (COPD): No Hx Cancer: No Hx Cardiac Disorders: Yes (BLOCKED ARTERIES, s/p STENT x 2 five weeks ago ) Hx Congestive Heart Failure: No Hx Hypertension: Yes Hx Hypercholesterolemia: Yes Hx Pacemaker: No HX Cerebrovascular Accident: No Hx Seizures: No Hx Dementia: No Hx Diabetes: No Hx Gastrointestinal Disorders: No Hx Liver Disease: No Hx Genitourinary Disorders: No Hx Sexually Transmitted Disorders: No Hx Renal Disease (ESRD): No Hx Thyroid Disease: No Hx Human Immunodeficiency Virus (HIV): No Hx Hepatitis C: No Hx Depression: Yes (Cymbalta) Hx Suicide Attempt: No Hx Bipolar Disorder: No Hx Schizophrenia: No - Patient Surgical History Past Surgical History: Yes Hx Neurologic Surgery: No Hx Cataract Extraction: No Hx Cardiac Surgery: Yes (2 STENTS 02/26/18) Hx Lung Surgery: No Hx Breast Surgery: No Hx Breast Biopsy: No Hx Abdominal Surgery: No Hx Appendectomy: No Hx Cholecystectomy: No Hx Genitourinary Surgery: No Hx Section: No Hx Orthopedic Surgery: No Hx Hysterectomy: No Other Surgical History: left tibia fx repair 2011 - PPD History Previous Implant?: Yes Documented Results: Negative w/proof Date: 04/01/18 Results: 0mm PPD to be Administered?: No - Reproductive History Patient is a Female of Child Bearing Age (11 -55 yrs old): No (MALE) - Smoking Cessation Smoking history: Current every day smoker Have you smoked in the past 12 months: Yes Aproximately how many cigarettes per day: 10 Hx Chewing Tobacco Use: No Initiated information on smoking cessation: Yes 'Breaking Loose' booklet given: 01/01/19 - Substance & Tx. History Hx Alcohol Use: Yes Hx Substance Use: Yes Substance Use Type: Alcohol, Cocaine Hx Substance Use Treatment: Yes ([facility]) - Substances Abused Alcohol Route: Oral Frequency: Daily Amount used: LIQUOR- 1 PINT, BEER- 1 CASE Age of first use: 13 Date of Last Use: 12/31/18 Crack Route: Smoking Frequency: Daily Amount used: 10 BAGS Age of first use: 49 Date of Last Use: 12/31/18 Family Disease History - Family Disease History Family Disease History: Diabetes: Father, CA: Mother ( skin CA ), Other: Father, Mother Admission Physical Exam BHS - Vital Signs Vital Signs: Vital Signs - 24 hr 01/01/19 17:56 Temperature 97.8 F Pulse Rate 85 Respiratory 18 Rate Blood Pressure 154/86 - Physical General Appearance: Yes: Moderate Distress, Tremorous, Irritable, Anxious HEENTM: Yes: Nasal Congestion Respiratory: Yes: Lungs Clear, Normal Breath Sounds, No Respiratory Distress Neck: Yes: Supple Breast: Yes: Breast Exam Deferred Cardiology: Yes: Regular Rhythm, Regular Rate Abdominal: Yes: Normal Bowel Sounds, Soft Genitourinary: Yes: Within Normal Limits Back: Yes: Normal Inspection Musculoskeletal: Yes: Back pain, Muscle Pain Extremities: Yes: Tremors Neurological: Yes: Alert, Normal Mood/Affect Integumentary: Yes: Warm Lymphatic: Yes: Within Normal Limits - Diagnostic (1) Alcohol dependence with withdrawal Current Visit: Yes Status: Acute Qualifiers: Complication of substance-induced condition: uncomplicated Qualified Code(s ): F10.230 - Alcohol dependence with withdrawal, uncomplicated (2) HLD (hyperlipidemia) Current Visit: Yes Status: Chronic Qualifiers: Hyperlipidemia type: other hyperlipidemia Qualified Code(s): E78.49 - Other hyperlipidemia; E78.4 - Other hyperlipidemia (3) HTN (hypertension) Current Visit: Yes Status: Chronic (4) History of heart artery stent Current Visit: Yes Status: Chronic (5) Nicotine dependence Current Visit: Yes Status: Chronic Qualifiers: Nicotine product type: cigarettes Substance use status: uncomplicated Qualified Code(s): F17.210 - Nicotine dependence, cigarettes, uncomplicated (6) Psoriasis Current Visit: No Status: Chronic Cleared for Admission [facility] - Detox or Rehab [facility] Level of Care: Medically Managed Detox Regimen/Protocol: Librium [facility] Breath Alcohol Content Breath Alcohol Content: 0 Urine Drug Screen - Results Drug Screen Negative: No Urine Drug Screen Results: TRAVIS-Cocaine
[2019-01-01] MEDS ORDERED: P-EPHED 60MG/TRIPROLIDI 2.5MG TABLET PO PRN (20:37)
[2019-01-01] MEDS ORDERED: IBUPROFEN 400 MG TABLET (FP) PO PRN (20:37)
[2019-01-01] MEDS ORDERED: MAG HYDROX/AL HYDROX/SIMETH 30 ML UNIT-DOSE CUP PO PRN (20:37)
[2019-01-01] MEDS ORDERED: MENTHOL/PHENOL 1 EACH UD MM PRN (20:37)
[2019-01-01] MEDS ORDERED: MAGNESIUM CITRATE 300 ML BOTTLE PO PRN (20:37)
[2019-01-01] MEDS ORDERED: guaiFENesin/D-METHORPHAN HB 10 ML UNIT-DOSE CUPS PO PRN (20:37)
[2019-01-01] MEDS ORDERED: MAGNESIUM HYDROX 2400MG/30ML ORAL SUSPENSION 30 ML CUP PO PRN (20:37)
[2019-01-01] MEDS ORDERED: NICOTINE POLACRILEX 2 MG GUM BC PRN (20:37)
[2019-01-01] MEDS ORDERED: LOPERAMIDE HCL 2 MG CAPSULE PO PRN (20:37)
[2019-01-01] MEDS ORDERED: chlordiazePOXIDE HCL 25 MG CAPSULE PO PRN (20:37)
[2019-01-01] MEDS ORDERED: MELATONIN 5 MG TABLETS PO PRN (22:00)
[2019-01-01] MEDS: chlordiazePOXIDE HCL 25 MG CAPSULE PO SCH (22:24)
[2019-01-01] MEDS: ATORVASTATIN CA 40 MG TABLET (FP) PO SCH (22:24)
[2019-01-01] MEDS: THIAMINE HCL 100 MG TABLET (FP) PO SCH (22:24)
[2019-01-01] MEDS: TRIAMCINOLONE ACET 0.1% OINT 15 GM TUBE TP SCH (23:37)
[2019-01-02] MEDS: chlordiazePOXIDE HCL 25 MG CAPSULE PO SCH ×4 (05:33→22:37)
[2019-01-02] MEDS: TRIAMCINOLONE ACET 0.1% OINT 15 GM TUBE TP SCH ×3 (07:00→22:44)
--- NOTE | 2019-01-02 07:34 | CONSULT ---
[facility] Psychiatric Consult - Data Date of interview: 01/02/19 Admission source: [facility] Identifying data: This is a 53 years old male, single, childless, living alone, on SSD support with 40 years of alcohol dependence, Cocaine and Nixotine dependence as well is reporting withdrawal symptoms and is seeking admission to detox. Patient was last detoxed at [facility] and reports 2 years of sobriety. Substance Abuse History: Smoking history: Current every day smoker. Have you smoked in the past 12 months: Yes. Aproximately how many cigarettes per day: 10. Hx Chewing Tobacco Use: No. Initiated information on smoking cessation: Yes. 'Breaking Loose' booklet given: 01/01/19. - Substance & Tx. History. Hx Alcohol Use: Yes. Hx Substance Use: Yes. Substance Use Type: Alcohol, Cocaine. Hx Substance Use Treatment: Yes ([facility]). - Substances Abused. Alcohol. Route: Oral. Frequency: Daily. Amount used: LIQUOR- 1 PINT, BEER- 1 CASE. Age of first use: 13. Date of Last Use: . Crack. Route: Smoking. Frequency: Daily. Amount used: 10 BAGS. Age of first use: 49. Date of Last Use: 12/31/18 Medical History: HTN, Cardiac stents (2), placement, CAD, Hyperlipidemia, Maxilar sinusitis, Psoriasis history, MMTP 130mg /day Psychiatric History: Patient reports history of Bipolar nDisoirder withg most recent psychiatric admission to [facility] on for safety, reports taking prior to admission: Zyrexa 0,5mg po qhs. Cymbalta 60mg poqd. Patient reports suicidal attempt history at 16 years old, reports no suicidal history since then. Current MMTP 130mg per day Physical/Sexual Abuse/Trauma History: Denies Additional Comment: Zyrexa 0,5mg po qhs. Cymbalta 60mg poqd Mental Status Exam - Mental Status Exam Alert and Oriented to: Person Cognitive Function: Fair Patient Appearance: Unkempt Mood: Sad Affect: Flat Patient Behavior: Sedated Speech Pattern: Delayed Voice Loudness: Mildly Soft/Quiet Thought Process: Goal Oriented Thought Disorder: Being Controlled Hallucinations: Denies Suicidal Ideation: Denies Homicidal Ideation: Denies Insight/Judgement: Fair Sleep: Difficulty falling asleep Appetite: Weight gain Muscle strength/Tone: Mild Hypotonicity Gait/Station: Shuffling Additional Comments: Zyrexa 0,5mg po qhs. Cymbalta 60mg poqd Psychiatric Findings - Problem List ([place] 1, 2,3) (1) Alcohol dependence with withdrawal Current Visit: Yes Status: Acute Qualifiers: Complication of substance-induced condition: uncomplicated Qualified Code(s ): F10.230 - Alcohol dependence with withdrawal, uncomplicated (2) HLD (hyperlipidemia) Current Visit: Yes Status: Chronic Qualifiers: Hyperlipidemia type: other hyperlipidemia Qualified Code(s): E78.49 - Other hyperlipidemia; E78.4 - Other hyperlipidemia (3) HTN (hypertension) Current Visit: Yes Status: Chronic (4) History of heart artery stent Current Visit: Yes Status: Chronic (5) Nicotine dependence Current Visit: Yes Status: Chronic Qualifiers: Nicotine product type: cigarettes Substance use status: uncomplicated Qualified Code(s): F17.210 - Nicotine dependence, cigarettes, uncomplicated (6) Acute maxillary sinusitis Current Visit: No Status: Acute Qualifiers: Recurrence: not specified (7) Alcohol dependence Current Visit: No Status: Acute (8) Cocaine dependence Current Visit: No Status: Acute Qualifiers: Substance use status: uncomplicated Qualified Code(s): F14.20 - Cocaine dependence, uncomplicated (9) Depression Current Visit: No Status: Acute Qualifiers: Depression Type: dysthymia Qualified Code(s): F34.1 - Dysthymic disorder (10) Edema Current Visit: No Status: Acute (11) Marijuana dependence Current Visit: No Status: Acute (12) Opioid dependence Current Visit: No Status: Acute Qualifiers: Substance use status: uncomplicated Qualified Code(s): F11.20 - Opioid dependence, uncomplicated (13) Substance induced mood disorder Current Visit: No Status: Acute (14) Substance-induced sleep disorder Current Visit: No Status: Acute (15) Psoriasis Current Visit: No Status: Chronic (16) MDD (major depressive disorder), recurrent episode, moderate Current Visit: No Status: Ruled-out - Initial Treatment Plan Initial Treatment Plan: Zyrexa 0,5mg po qhs. Cymbalta 60mg poqd
[2019-01-02 10:08] LABS: HEMATOCRIT 39.2 % (35.4-49); HEMOGLOBIN 13.7 GM/dL (11.7-16.9); MCH 30.2 pg (25.7-33.7); MCHC 34.9 g/dl (32.0-35.9); MEAN CELL VOLUME 86.6 fl (80-96); MEAN PLT VOLUME 8.2 fl (7.5-11.1); PLATELET COUNT 277 K/MM3 (134-434); RBC 4.53 M/mm3 (4.00-5.60); RDW 12.6 % (11.9-15.9); WHITE BLOOD COUNT 7.4 K/mm3 (4.0-10.0)
[2019-01-02] MEDS: CLOPIDOGREL BISULFATE 75 MG TABLET (FP) PO SCH (10:47)
[2019-01-02] MEDS: ASPIRIN 81 MG CHEWABLE TABLETS PO SCH (10:47)
[2019-01-02] MEDS: OLANZapine 5 MG TABLET PO SCH (10:47)
[2019-01-02] MEDS: PRENATAL VITAMINS W/ FOLIC ACID TABLET (FP) PO SCH (10:47)
[2019-01-02] MEDS: DULoxetine HCL 60 MG CAPSULE.DR PO SCH (10:51)
[2019-01-02] MEDS: NICOTINE 14 MG/24 HOURS TOPICAL PATCH TD SCH (10:52)
[2019-01-02 11:08] LABS: ALBUMIN 3.6 g/dl (3.4-5.0); ALK PHOS 60 U/L (45-117); ANION GAP 8 MMOL/L (8-16); BILIRUBIN,TOTAL 0.4 mg/dL (0.2-1); BLOOD UREA NITROGEN 13 mg/dL (7-18); CALCIUM 8.6 mg/dL (8.5-10.1); CHLORIDE 110 mmol/L (98-107); CO2 25 mmol/L (21-32); GLUCOSE,RANDOM 121 mg/dL (74-106); SGOT/AST 8 U/L (15-37); SGPT/ALT 25 U/L (13-61); SODIUM 143 mmol/L (136-145); TOT PROT 6.3 g/dl (6.4-8.2)
[2019-01-02] MEDS ORDERED: LISINOPRIL 10 MG TABLET (FP) PO ONE (13:36)
--- NOTE | 2019-01-02 13:41 | PN ---
S CIWA - CIWA Score Nausea/Vomitin-No Nausea/No Vomiting Muscle Tremors: None Anxiety: 2 Agitation: 0-Normal Activity Paroxysmal Sweats: 3 Orientation: 0-Oriented Tacttile Disturbances: 2-Mild Itch/Numbness/Burn Auditory Disturbances: 0-None Visual Disturbances: 3-Moderate Sensitivity Headache: 3-Moderate CIWA-Ar Total Score: 13 BHS Progress Note (SOAP) Subjective: Constipation, Interrupted Sleep, Sweating, H/A, Body Aches. Objective: PATIENT A & O X 3, OBSERVED AMBULATING ON UNIT. IN NO ACUTE DISTRESS. PATIENT DENIES CHEST PAIN. 01/02/19 13:38 Vital Signs Temperature 98.0 F 01/02/19 13:13 Pulse Rate 92 H 01/02/19 13:13 Respiratory Rate 20 01/02/19 13:13 Blood Pressure 141/91 01/02/19 13:13 O2 Sat by Pulse Oximetry (%) Laboratory Tests 01/02/19 01/02/19 01/02/19 07:00 07:00 07:00 WBC 7.4 RBC 4.53 Hgb 13.7 Hct 39.2 MCV 86.6 MCH 30.2 MCHC 34.9 RDW 12.6 Plt Count 277 MPV 8.2 Sodium 143 Potassium 4.0 Chloride 110 H Carbon Dioxide 25 Anion Gap 8 BUN 13 Creatinine 1.0 Creat Clearance w eGFR > 60 Random Glucose 121 H Calcium 8.6 Total Bilirubin 0.4 AST 8 L ALT 25 Alkaline Phosphatase 60 Total Protein 6.3 L Albumin 3.6 RPR Titer HIV 1&2 Antibody Screen Negative HIV P24 Antigen Negative 01/02/19 07:00 WBC RBC Hgb Hct MCV MCH MCHC RDW Plt Count MPV Sodium Potassium Chloride Carbon Dioxide Anion Gap BUN Creatinine Creat Clearance w eGFR Random Glucose Calcium Total Bilirubin AST ALT Alkaline Phosphatase Total Protein Albumin RPR Titer Nonreactive HIV 1&2 Antibody Screen HIV P24 Antigen LABS NOTED. Assessment: 01/02/19 13:38 WITHDRAWAL SYMPTOMS. ELEVATED BLOOD PRESSURE. Plan: CONTINUE DETOX. PATIENT REPORTS HISTORY OF HTN IN PAST AND THAT HE PREVIOUSLY TOOK LISINOPRIL TO TREAT. HOWEVER, HIS OUTPATIENT MEDICAL PROVIDER STOPPED THE LISINOPRIL IN PAST BECAUSE HIS BP HAD IMPROVED. SINCE BP ELEVATED AT THIS TIME, WILL START LISINOPRIL, 10 MG PO DAILY FOR TIME BEING AND CONTINUE TO MONITOR BP.
[2019-01-02] MEDS: ATORVASTATIN CA 40 MG TABLET (FP) PO SCH (22:37)
[2019-01-02] MEDS: THIAMINE HCL 100 MG TABLET (FP) PO SCH (22:39)
[2019-01-03] MEDS: TRIAMCINOLONE ACET 0.1% OINT 15 GM TUBE TP SCH ×3 (06:24→22:02)
[2019-01-03] MEDS: chlordiazePOXIDE HCL 25 MG CAPSULE PO SCH ×3 (06:24→18:01)
[2019-01-03] MEDS: ACETAMINOPHEN 325 MG TABLET (FP) PO PRN ×2 (08:55→17:04)
[2019-01-03] MEDS: NICOTINE 14 MG/24 HOURS TOPICAL PATCH TD SCH (10:41)
[2019-01-03] MEDS: DULoxetine HCL 60 MG CAPSULE.DR PO SCH (10:41)
[2019-01-03] MEDS: LISINOPRIL 10 MG TABLET (FP) PO SCH (10:41)
[2019-01-03] MEDS: CLOPIDOGREL BISULFATE 75 MG TABLET (FP) PO SCH (10:41)
[2019-01-03] MEDS: PRENATAL VITAMINS W/ FOLIC ACID TABLET (FP) PO SCH (10:41)
[2019-01-03] MEDS: OLANZapine 5 MG TABLET PO SCH (10:41)
[2019-01-03] MEDS: ASPIRIN 81 MG CHEWABLE TABLETS PO SCH (10:41)
--- NOTE | 2019-01-03 10:48 | PN ---
BHS CIWA - CIWA Score Nausea/Vomitin Muscle Tremors: 2 Anxiety: 2 Agitation: 2 Paroxysmal Sweats: 1-Minimal Palms Moist Orientation: 0-Oriented Tacttile Disturbances: 1-Very Mild Itch/Numbness Auditory Disturbances: 1-Very Mild Visual Disturbances: 0-None Headache: 2-Mild CIWA-Ar Total Score: 13 BHS Progress Note (SOAP) Subjective: alert,irritable,anxious,interrupted sleep,tremor Objective: 01/03/19 10:46 Vital Signs Temperature 98.0 F 01/03/19 09:18 Pulse Rate 83 01/03/19 09:18 Respiratory Rate 18 01/03/19 09:18 Blood Pressure 149/76 01/03/19 09:18 O2 Sat by Pulse Oximetry (%) Assessment: 01/03/19 10:47 withdrawal symptom Plan: continue detox,fasting glucose in am
[2019-01-03] MEDS: ATORVASTATIN CA 40 MG TABLET (FP) PO SCH (22:01)
[2019-01-03] MEDS: chlordiazePOXIDE 5 MG CAPSULE PO SCH (22:01)
[2019-01-03] MEDS: THIAMINE HCL 100 MG TABLET (FP) PO SCH (22:01)
[2019-01-04] MEDS: ACETAMINOPHEN 325 MG TABLET (FP) PO PRN ×3 (01:11→22:16)
[2019-01-04] MEDS: chlordiazePOXIDE 5 MG CAPSULE PO SCH ×3 (05:42→17:18)
[2019-01-04] MEDS: TRIAMCINOLONE ACET 0.1% OINT 15 GM TUBE TP SCH ×3 (05:44→23:11)
[2019-01-04] MEDS: ASPIRIN 81 MG CHEWABLE TABLETS PO SCH (10:06)
[2019-01-04] MEDS: LISINOPRIL 10 MG TABLET (FP) PO SCH (10:06)
[2019-01-04] MEDS: CLOPIDOGREL BISULFATE 75 MG TABLET (FP) PO SCH (10:06)
[2019-01-04] MEDS: OLANZapine 5 MG TABLET PO SCH (10:06)
[2019-01-04] MEDS: PRENATAL VITAMINS W/ FOLIC ACID TABLET (FP) PO SCH (10:06)
[2019-01-04] MEDS: NICOTINE 14 MG/24 HOURS TOPICAL PATCH TD SCH (10:07)
--- NOTE | 2019-01-04 10:41 | PN ---
Psychiatric Progress Note Vital Signs: Vital Signs Period Temp Pulse Resp BP Sys/Alvarez Pulse Ox Last 24 Hr 96.4 F-98.1 F 62-82 18-20 132-154/65-72 Date of Session: 01/04/19 Chief Complaint:: My medications HPI: Patient reports changing his pharmacy and asking provider to resent his medicatiuons to a new location Current Medications: Active Medications Generic Name Dose Route Start Last Admin Trade Name Freq PRN Reason Stop Dose Admin Acetaminophen 650 mg 01/01/19 20:37 01/04/19 01:11 Tylenol - PO 650 mg Q4H PRN Administration FEVER Al Hydroxide/Mg Hydroxide 30 ml 01/01/19 20:37 Mylanta Oral Suspension - PO Q6H PRN DYSPEPSIA Aspirin 81 mg 01/02/19 10:00 01/04/19 10:06 Asa - PO 81 mg DAILY JACK Administration Atorvastatin Calcium 40 mg 01/01/19 22:00 01/03/19 22:01 Lipitor - PO 40 mg HS JACK Administration Chlordiazepoxide HCl 15 mg 01/03/19 23:00 01/04/19 10:06 Librium - PO 01/04/19 17:01 15 mg [id number] JACK Administration Chlordiazepoxide HCl 25 mg 01/01/19 20:37 Librium - PO 01/04/19 20:36 Q4H PRN WITHDRAWAL(CONT SUBST) Chlordiazepoxide HCl 10 mg 01/04/19 23:00 Librium - PO 01/05/19 17:01 [id number] JACK Clopidogrel Bisulfate 75 mg 01/02/19 10:00 01/04/19 10:06 Plavix - PO 75 mg DAILY JACK Administration Duloxetine HCl 60 mg 01/02/19 10:00 01/03/19 10:41 Cymbalta - PO 60 mg DAILY JACK Administration Eucalyptus/Menthol/Phenol/Sorbitol 1 each 01/01/19 20:37 Cepastat Lozenge - MM Q4H PRN SORE THROAT Guaifenesin 10 ml 01/01/19 20:37 Robitussin Dm - PO Q6H PRN COUGH Lisinopril 10 mg 01/03/19 10:00 01/04/19 10:06 Prinivil PO 10 mg DAILY JACK Administration Loperamide HCl 4 mg 01/01/19 20:37 Imodium - PO Q6H PRN DIARRHEA Magnesium Citrate 300 ml 01/01/19 20:37 Citroma - PO Q48H PRN CONSTIPATION Magnesium Hydroxide 30 ml 01/01/19 20:37 Milk Of Magnesia - PO DAILY PRN CONSTIPATION Melatonin 5 mg 01/01/19 22:00 Melatonin PO HS PRN INSOMNIA Nicotine 14 mg 01/02/19 10:00 01/04/19 10:07 Nicoderm Patch - TD Not Given DAILY JACK Nicotine Polacrilex 2 mg 01/01/19 20:37 Nicorette Gum - BC Q2H PRN NICOTINE REPLACEMENT RX Olanzapine 5 mg 01/02/19 10:00 01/04/19 10:06 Zyprexa - PO 5 mg DAILY JACK Administration Multivit/Folic Acid/Iron 1 tab 01/02/19 10:00 01/04/19 10:06 Vitamins (Sjr) - PO 1 tab DAILY AJCK Administration Pseudoephedrine/Triprolidine 1 combo 01/01/19 20:37 Actifed - PO TID PRN NASAL CONGESTION Thiamine HCl 100 mg 01/01/19 22:00 01/03/19 22:01 Vitamin B1 - PO 100 mg HS JACK Administration Triamcinolone Acetonide 1 applic 01/01/19 22:00 01/04/19 05:44 Aristocort 0.1% Ointment - TP Not Given TID JACK Medication(s) Change(s): none Provider note:: Medications sent to new location Mental Status Exam - Mental Status Exam Alert and Oriented to: Person Cognitive Function: Fair Patient Appearance: Well Groomed Mood: Apprehensive Patient Behavior: Cooperative Speech Pattern: Appropriate Voice Loudness: Normal Thought Process: Goal Oriented Thought Disorder: Being Controlled Hallucinations: Denies Suicidal Ideation: Denies Homicidal Ideation: Denies Insight/Judgement: Fair Sleep: Fair Appetite: Weight gain Muscle strength/Tone: Normal Gait/Station: Normal Additional Comments: Wellbutrin XR 300mg poqd. Gabapentin 300mg po tidh Psychiatric Treatment Plan - Problem List (1) Alcohol dependence with withdrawal Current Visit: Yes Qualifiers: Complication of substance-induced condition: uncomplicated Qualified Code(s ): F10.230 - Alcohol dependence with withdrawal, uncomplicated (2) HLD (hyperlipidemia) Current Visit: Yes Qualifiers: Hyperlipidemia type: other hyperlipidemia Qualified Code(s): E78.49 - Other hyperlipidemia; E78.4 - Other hyperlipidemia (3) HTN (hypertension) Current Visit: Yes (4) History of heart artery stent Current Visit: Yes (5) Nicotine dependence Current Visit: Yes Qualifiers: Nicotine product type: cigarettes Substance use status: uncomplicated Qualified Code(s): F17.210 - Nicotine dependence, cigarettes, uncomplicated (6) Acute maxillary sinusitis Current Visit: No Qualifiers: Recurrence: not specified (7) Alcohol dependence Current Visit: No (8) Cocaine dependence Current Visit: No Qualifiers: Substance use status: uncomplicated Qualified Code(s): F14.20 - Cocaine dependence, uncomplicated (9) Depression Current Visit: No Qualifiers: Depression Type: dysthymia Qualified Code(s): F34.1 - Dysthymic disorder (10) Edema Current Visit: No (11) Marijuana dependence Current Visit: No (12) Opioid dependence Current Visit: No Qualifiers: Substance use status: uncomplicated Qualified Code(s): F11.20 - Opioid dependence, uncomplicated (13) Substance induced mood disorder Current Visit: No (14) Substance-induced sleep disorder Current Visit: No (15) Psoriasis Current Visit: No (16) MDD (major depressive disorder), recurrent episode, moderate Current Visit: No Initial treatment plan: Patients medications sent to new Pharmacy. Zyrexa 0, 5mg po qhs. Cymbalta 60mg poqd
[2019-01-04] MEDS: DULoxetine HCL 60 MG CAPSULE.DR PO SCH (11:08)
--- NOTE | 2019-01-04 17:31 | PN ---
BHS Progress Note (SOAP) Subjective: Constipation, Interrupted Sleep, H/A, Sweating, Body Aches, Stomach Cramping. Objective: PATIENT A & O X 3, OBSERVED AMBULATING ON UNIT. IN NO ACUTE DISTRESS. 01/04/19 17:29 Vital Signs Temperature 97.8 F 01/04/19 17:22 Pulse Rate 67 01/04/19 17:22 Respiratory Rate 18 01/04/19 17:22 Blood Pressure 124/56 L 01/04/19 17:22 O2 Sat by Pulse Oximetry (%) Laboratory Tests 01/02/19 01/02/19 01/02/19 07:00 07:00 07:00 WBC 7.4 RBC 4.53 Hgb 13.7 Hct 39.2 MCV 86.6 MCH 30.2 MCHC 34.9 RDW 12.6 Plt Count 277 MPV 8.2 Sodium 143 Potassium 4.0 Chloride 110 H Carbon Dioxide 25 Anion Gap 8 BUN 13 Creatinine 1.0 Creat Clearance w eGFR > 60 Random Glucose 121 H Fasting Glucose Calcium 8.6 Total Bilirubin 0.4 AST 8 L ALT 25 Alkaline Phosphatase 60 Total Protein 6.3 L Albumin 3.6 RPR Titer HIV 1&2 Antibody Screen Negative HIV P24 Antigen Negative 01/02/19 01/04/19 07:00 07:00 WBC RBC Hgb Hct MCV MCH MCHC RDW Plt Count MPV Sodium Potassium Chloride Carbon Dioxide Anion Gap BUN Creatinine Creat Clearance w eGFR Random Glucose Fasting Glucose 112 H Calcium Total Bilirubin AST ALT Alkaline Phosphatase Total Protein Albumin RPR Titer Nonreactive HIV 1&2 Antibody Screen HIV P24 Antigen LABS NOTED. Assessment: 01/04/19 17:30 WITHDRAWAL SYMPTOMS. Plan: CONTINUE DETOX.
[2019-01-04] MEDS: THIAMINE HCL 100 MG TABLET (FP) PO SCH (22:15)
[2019-01-04] MEDS: chlordiazePOXIDE HCL 10 MG CAPSULE PO SCH (22:15)
[2019-01-04] MEDS: ATORVASTATIN CA 40 MG TABLET (FP) PO SCH (22:15)
[2019-01-05] MEDS: chlordiazePOXIDE HCL 10 MG CAPSULE PO SCH ×3 (06:31→18:44)
[2019-01-05] MEDS: TRIAMCINOLONE ACET 0.1% OINT 15 GM TUBE TP SCH ×3 (06:33→23:20)
[2019-01-05] MEDS: OLANZapine 5 MG TABLET PO SCH (10:49)
[2019-01-05] MEDS: DULoxetine HCL 60 MG CAPSULE.DR PO SCH (10:49)
[2019-01-05] MEDS: ASPIRIN 81 MG CHEWABLE TABLETS PO SCH (10:50)
[2019-01-05] MEDS: ACETAMINOPHEN 325 MG TABLET (FP) PO PRN (10:50)
[2019-01-05] MEDS: LISINOPRIL 10 MG TABLET (FP) PO SCH (10:50)
[2019-01-05] MEDS: CLOPIDOGREL BISULFATE 75 MG TABLET (FP) PO SCH (10:50)
[2019-01-05] MEDS: PRENATAL VITAMINS W/ FOLIC ACID TABLET (FP) PO SCH (10:50)
[2019-01-05] MEDS: NICOTINE 14 MG/24 HOURS TOPICAL PATCH TD SCH (10:51)
--- NOTE | 2019-01-05 15:43 | PN ---
S Progress Note (SOAP) Subjective: Constipation, Body Aches, Sweating. Objective: PATIENT A & O X 3, OBSERVED AMBULATING ON UNIT. IN NO ACUTE DISTRESS. 01/05/19 15:35 Vital Signs Temperature 97.9 F 01/05/19 13:56 Pulse Rate 79 01/05/19 13:56 Respiratory Rate 18 01/05/19 13:56 Blood Pressure 146/81 01/05/19 13:56 O2 Sat by Pulse Oximetry (%) Laboratory Tests 01/02/19 01/02/19 01/02/19 07:00 07:00 07:00 WBC 7.4 RBC 4.53 Hgb 13.7 Hct 39.2 MCV 86.6 MCH 30.2 MCHC 34.9 RDW 12.6 Plt Count 277 MPV 8.2 Sodium 143 Potassium 4.0 Chloride 110 H Carbon Dioxide 25 Anion Gap 8 BUN 13 Creatinine 1.0 Creat Clearance w eGFR > 60 Random Glucose 121 H Fasting Glucose Calcium 8.6 Total Bilirubin 0.4 AST 8 L ALT 25 Alkaline Phosphatase 60 Total Protein 6.3 L Albumin 3.6 RPR Titer HIV 1&2 Antibody Screen Negative HIV P24 Antigen Negative 01/02/19 01/04/19 07:00 07:00 WBC RBC Hgb Hct MCV MCH MCHC RDW Plt Count MPV Sodium Potassium Chloride Carbon Dioxide Anion Gap BUN Creatinine Creat Clearance w eGFR Random Glucose Fasting Glucose 112 H Calcium Total Bilirubin AST ALT Alkaline Phosphatase Total Protein Albumin RPR Titer Nonreactive HIV 1&2 Antibody Screen HIV P24 Antigen LABS NOTED. Assessment: 01/05/19 15:35 WITHDRAWAL SYMPTOMS. Plan: CONTINUE DETOX. INCREASE DAILY PO FLUID INTAKE. PRN MOM FOR CONSTIPATION. PATIENT SCHEDULED FOR D/C TOMORROW. TODAY, PATIENT REPORTS SWELLING IN BILATERAL FEET. PATIENT UNCERTAIN HOW LONG SWELLING HAS BEEN GOING, BUT THINKS THAT IT MIGHT HAVE OCCURRED IN PAST AT TIME IN PAST IN WHICH HE WAS TAKING LISINOPRIL FOR HTN. PATIENT DENIES PAIN IN FEET AND IN LOWER LEGS. NO ERYTHEMA, WOUNDS OR DISCHARGE NOTED IN BILATERAL FEET. NO SWELLING OR ERYTHEMA NOTED IN BILATERAL LOWER LEGS. NO PITTING EDEMA NOTED IN BILATERAL FEET. PATIENT HAS FULL ROM AND FULL TACTILE SENSATION OF BILATERAL FEET. CAPILLARY REFILL < 2 SECONDS IN TOES OF BILATERAL FEET. PEDAL PULSES PALPABLE AND EQUAL IN BILATERAL FEET. LISINOPRIL D/C'D. WILL CONTINUE TO MONITOR BP FOR TIME BEING. PATIENT ADVISED TO ELEVATED FEET IN BED MUCH S POSSIBLE FOR TIME BEING. PATIENT ALSO ADVISED TO FOLLOW-UP WITH VICE PRESIDENT OF MARKETING DR. CORREIA ([place], [place]) SOON POSSIBLE AFTER DISCHARGE FROM DETOX UNIT FOR FURTHER EVALUATION. PATIENT VERBALIZED UNDERSTANDING OF RECOMMENDATIONS. PRESCRIPTION FOR LISINOPRIL THAT HAD BEEN SENT OUT TO [facility] YESTERDAY FOR AFTERCARE CANCELLED (WHITING CAN WORKER SPOKE TO MARY NELSON AT [facility] TO DO SO).
[2019-01-05] MEDS ORDERED: cloNIDine HCL 0.1 MG TABLET PO PRN (15:50)
[2019-01-05] MEDS ORDERED: HYDROCHLOROTHIAZIDE 25 MG TABLET (FP) PO ONE (17:15)
[2019-01-05] MEDS: ATORVASTATIN CA 40 MG TABLET (FP) PO SCH (22:25)
[2019-01-05] MEDS: THIAMINE HCL 100 MG TABLET (FP) PO SCH (22:25)
[2019-01-06] MEDS: TRIAMCINOLONE ACET 0.1% OINT 15 GM TUBE TP SCH ×2 (05:57→15:22)
--- NOTE | 2019-01-06 10:14 | DS ---
[facility] Detox Discharge Summary Admission Date: 01/01/19 Discharge Date: 01/06/19 - History Present History: Alcohol Dependence, Cannabis Dependence, Cocaine Dependence, Opioid Dependence - Physical Exam Results Vital Signs: Vital Signs Temperature 97.9 F 01/06/19 09:13 Pulse Rate 80 01/06/19 09:13 Respiratory Rate 18 01/06/19 09:13 Blood Pressure 143/75 01/06/19 09:13 O2 Sat by Pulse Oximetry (%) - Treatment Hospital Course: Detox Protocol Followed, Detoxed Safely, Responded well, Discharged Condition Good, Rehab Referral Accepted - Medication Discharge Medications: Ambulatory Orders Triamcinolone 0.1% Ointment [Aristocort 0.1% Ointment -] 1 applic TP TID applic 04/03/18 Duloxetine HCl [Cymbalta -] 60 mg PO DAILY #30 capsule. 01/02/19 Olanzapine [Zyprexa -] 5 mg PO DAILY #30 tablet 01/02/19 Aspirin [ASA -] 81 mg PO DAILY #30 tab.chew 01/04/19 Atorvastatin Ca [Lipitor] 40 mg PO HS #30 tablet 01/04/19 Clopidogrel Bisulfate [Plavix -] 75 mg PO DAILY #30 tablet 01/04/19 Duloxetine HCl [Cymbalta -] 60 mg PO DAILY #30 capsule. 01/04/19 Lisinopril 10 mg PO DAILY #30 tablet 01/04/19 Olanzapine [Zyprexa -] 5 mg PO DAILY #30 tablet 01/04/19 - Diagnosis (1) Alcohol dependence with withdrawal Current Visit: Yes Status: Chronic Qualifiers: Complication of substance-induced condition: uncomplicated Qualified Code(s ): F10.230 - Alcohol dependence with withdrawal, uncomplicated (2) HLD (hyperlipidemia) Current Visit: Yes Status: Chronic Qualifiers: Hyperlipidemia type: other hyperlipidemia Qualified Code(s): E78.49 - Other hyperlipidemia; E78.4 - Other hyperlipidemia (3) HTN (hypertension) Current Visit: Yes Status: Chronic Qualifiers: Hypertension type: essential hypertension Qualified Code(s): I10 - Essential (primary) hypertension (4) History of heart artery stent Current Visit: Yes Status: Chronic (5) Nicotine dependence Current Visit: Yes Status: Chronic Qualifiers: Nicotine product type: cigarettes Substance use status: uncomplicated Qualified Code(s): F17.210 - Nicotine dependence, cigarettes, uncomplicated (6) Acute maxillary sinusitis Current Visit: No Status: Acute Qualifiers: Recurrence: not specified (7) Cocaine dependence Current Visit: Yes Status: Chronic Qualifiers: Substance use status: uncomplicated Qualified Code(s): F14.20 - Cocaine dependence, uncomplicated (8) Depression Current Visit: No Status: Acute Qualifiers: Depression Type: dysthymia Qualified Code(s): F34.1 - Dysthymic disorder (9) Dizziness Current Visit: No Status: Acute (10) Marijuana dependence Current Visit: No Status: Acute (11) Opioid dependence Current Visit: No Status: Acute Qualifiers: Substance use status: uncomplicated Qualified Code(s): F11.20 - Opioid dependence, uncomplicated (12) Substance induced mood disorder Current Visit: No Status: Acute (13) Substance-induced sleep disorder Current Visit: No Status: Acute (14) Psoriasis Current Visit: No Status: Chronic (15) MDD (major depressive disorder), recurrent episode, moderate Current Visit: No Status: Ruled-out - AMA Did Patient Leave Against Medical Advice: No (referred to [facility])
[2019-01-06] MEDS: CLOPIDOGREL BISULFATE 75 MG TABLET (FP) PO SCH (10:54)
[2019-01-06] MEDS: OLANZapine 5 MG TABLET PO SCH (10:54)
[2019-01-06] MEDS: ASPIRIN 81 MG CHEWABLE TABLETS PO SCH (10:54)
[2019-01-06] MEDS: PRENATAL VITAMINS W/ FOLIC ACID TABLET (FP) PO SCH (10:55)
[2019-01-06] MEDS: NICOTINE 14 MG/24 HOURS TOPICAL PATCH TD SCH (10:55)
[2019-01-06] MEDS: DULoxetine HCL 60 MG CAPSULE.DR PO SCH (10:55)
[2019-01-06] MEDS: ACETAMINOPHEN 325 MG TABLET (FP) PO PRN (16:19)
[2019-01-06 17:58] VITALS: BP 134/79; PULSE 84; TEMP 97.8
== END 2019-01-06 18:50 | disposition other institution (70) | DRG 773 ==
LOC: YASAS 17:24 → Y6N 20:55
PROVIDERS: ADMIT Neuromusculoskeletal Medicine & OMM; ATTEND Neuromusculoskeletal Medicine & OMM
PROC: HZ2ZZZZ Detoxification Services for Substance Abuse Treatment (ICD-10-PCS; principal; 2019-01-01)
DX: F11.23 Opioid dependence with withdrawal (principal); F10.230 Alcohol dependence with withdrawal, uncomplicated; F14.20 Cocaine dependence, uncomplicated; F12.20 Cannabis dependence, uncomplicated; F17.210 Nicotine dependence, cigarettes, uncomplicated; F33.1 Major depressive disorder, recurrent, moderate; F34.1 Dysthymic disorder; F19.24 Other psychoactive substance dependence with psychoactive substance-induced mood disorder; F19.282 Other psychoactive substance dependence with psychoactive substance-induced sleep disorder; I10 Essential (primary) hypertension; E78.5 Hyperlipidemia, unspecified; J01.00 Acute maxillary sinusitis, unspecified; L40.9 Psoriasis, unspecified; R42 Dizziness and giddiness; E78.49 Other hyperlipidemia; R60.9 Edema, unspecified; I25.10 Atherosclerotic heart disease of native coronary artery without angina pectoris; Z95.5 Presence of coronary angioplasty implant and graft
CPT/HCPCS: 36415; 80053; 82947; 85027; 86593; 87389; J0735

== ENCOUNTER 2019-01-06 19:21 | Inpatient (IN) | payer OTHER ==
--- NOTE | 2019-01-06 13:16 | HP ---
[facility] Rehab Assess/Revision - Admission History Admitted to Rehab from: [facility] - Findings Detox History & Physical reviewed: Yes Concur with findings: Yes Inpatient Rehab Admission - Rehab Decision to Admit Inpatient rehab admission?: Yes - Initial Determination Are CD services needed?: Yes Free of communicable disease: Yes Not in need of hospitalization: Yes - Rehab Admission Criteria Previous failed treatment: Yes Poor recovery environment: Yes Comorbidities: Yes Lacks judgement: Yes Patient is meeting Inpatient Rehab admission criteria:: Yes
[~2019-01-06 19:21] MED LIST: ACETAMINOPHEN 325 MG TABLET (FP) PO PRN; IBUPROFEN 400 MG TABLET (FP) PO PRN; LOPERAMIDE HCL 2 MG CAPSULE PO PRN; MAG HYDROX/AL HYDROX/SIMETH 30 ML UNIT-DOSE CUP PO PRN; MAGNESIUM CITRATE 300 ML BOTTLE PO PRN; MAGNESIUM HYDROX 2400MG/30ML ORAL SUSPENSION 30 ML CUP PO PRN; MENTHOL/PHENOL 1 EACH UD MM PRN; NICOTINE POLACRILEX 4 MG GUM BUC PRN; P-EPHED 60MG/TRIPROLIDI 2.5MG TABLET PO PRN; guaiFENesin/D-METHORPHAN HB 10 ML UNIT-DOSE CUPS PO PRN; hydrOXYzine PAMOATE 50 MG CAPSULE (FP) PO PRN
[2019-01-06] MEDS: THIAMINE HCL 100 MG TABLET (FP) PO SCH (21:31)
[2019-01-06] MEDS: TRIAMCINOLONE ACET 0.1% OINT 15 GM TUBE TP SCH (21:32)
[2019-01-06] MEDS: ATORVASTATIN CA 40 MG TABLET (FP) PO SCH (21:32)
[2019-01-06] MEDS: MELATONIN 5 MG TABLETS PO PRN (21:33)
[2019-01-07] MEDS: TRIAMCINOLONE ACET 0.1% OINT 15 GM TUBE TP SCH ×3 (06:20→21:38)
[2019-01-07] MEDS: LISINOPRIL 10 MG TABLET (FP) PO SCH (10:12)
[2019-01-07] MEDS: ASPIRIN 81 MG CHEWABLE TABLETS PO SCH (10:12)
[2019-01-07] MEDS: CLOPIDOGREL BISULFATE 75 MG TABLET (FP) PO SCH (10:12)
[2019-01-07] MEDS: PRENATAL VITAMINS W/ FOLIC ACID TABLET (FP) PO SCH (10:12)
[2019-01-07] MEDS: NICOTINE 21 MG/24 HOURS TOPICAL PATCH TD SCH (10:13)
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
[2019-01-07] MEDS: THIAMINE HCL 100 MG TABLET (FP) PO SCH (21:37)
[2019-01-07] MEDS: MELATONIN 5 MG TABLETS PO PRN (21:38)
[2019-01-07] MEDS: ATORVASTATIN CA 40 MG TABLET (FP) PO SCH (21:38)
[2019-01-08] MEDS: TRIAMCINOLONE ACET 0.1% OINT 15 GM TUBE TP SCH ×3 (06:08→21:35)
[2019-01-08] MEDS: DULoxetine HCL 60 MG CAPSULE.DR PO SCH (10:22)
[2019-01-08] MEDS: NICOTINE 21 MG/24 HOURS TOPICAL PATCH TD SCH (10:22)
[2019-01-08] MEDS: ASPIRIN 81 MG CHEWABLE TABLETS PO SCH (10:22)
[2019-01-08] MEDS: LISINOPRIL 10 MG TABLET (FP) PO SCH (10:22)
[2019-01-08] MEDS: PRENATAL VITAMINS W/ FOLIC ACID TABLET (FP) PO SCH (10:22)
[2019-01-08] MEDS: CLOPIDOGREL BISULFATE 75 MG TABLET (FP) PO SCH (10:22)
[2019-01-08] MEDS: MELATONIN 5 MG TABLETS PO PRN (21:35)
[2019-01-08] MEDS: THIAMINE HCL 100 MG TABLET (FP) PO SCH (21:35)
[2019-01-08] MEDS: ATORVASTATIN CA 40 MG TABLET (FP) PO SCH (21:35)
[2019-01-09] MEDS: TRIAMCINOLONE ACET 0.1% OINT 15 GM TUBE TP SCH ×3 (07:15→21:39)
[2019-01-09] MEDS: DULoxetine HCL 60 MG CAPSULE.DR PO SCH (10:36)
[2019-01-09] MEDS: CLOPIDOGREL BISULFATE 75 MG TABLET (FP) PO SCH (10:36)
[2019-01-09] MEDS: PRENATAL VITAMINS W/ FOLIC ACID TABLET (FP) PO SCH (10:36)
[2019-01-09] MEDS: ASPIRIN 81 MG CHEWABLE TABLETS PO SCH (10:36)
[2019-01-09] MEDS: NICOTINE 21 MG/24 HOURS TOPICAL PATCH TD SCH (10:37)
[2019-01-09] MEDS: LISINOPRIL 10 MG TABLET (FP) PO SCH (10:37)
[2019-01-09] MEDS: ATORVASTATIN CA 40 MG TABLET (FP) PO SCH (21:39)
[2019-01-09] MEDS: MELATONIN 5 MG TABLETS PO PRN (21:39)
[2019-01-09] MEDS: THIAMINE HCL 100 MG TABLET (FP) PO SCH (21:39)
[2019-01-10] MEDS: TRIAMCINOLONE ACET 0.1% OINT 15 GM TUBE TP SCH ×3 (06:59→21:40)
[2019-01-10] MEDS: CLOPIDOGREL BISULFATE 75 MG TABLET (FP) PO SCH (10:06)
[2019-01-10] MEDS: ASPIRIN 81 MG CHEWABLE TABLETS PO SCH (10:06)
[2019-01-10] MEDS: NICOTINE 21 MG/24 HOURS TOPICAL PATCH TD SCH (10:06)
[2019-01-10] MEDS: DULoxetine HCL 60 MG CAPSULE.DR PO SCH (10:06)
[2019-01-10] MEDS: PRENATAL VITAMINS W/ FOLIC ACID TABLET (FP) PO SCH (10:06)
[2019-01-10] MEDS: THIAMINE HCL 100 MG TABLET (FP) PO SCH (21:39)
[2019-01-10] MEDS: MELATONIN 5 MG TABLETS PO PRN (21:40)
[2019-01-10] MEDS: ATORVASTATIN CA 40 MG TABLET (FP) PO SCH (21:40)
[2019-01-11] MEDS: TRIAMCINOLONE ACET 0.1% OINT 15 GM TUBE TP SCH ×3 (06:52→21:52)
[2019-01-11] MEDS: NICOTINE 21 MG/24 HOURS TOPICAL PATCH TD SCH (10:05)
[2019-01-11] MEDS: CLOPIDOGREL BISULFATE 75 MG TABLET (FP) PO SCH (10:05)
[2019-01-11] MEDS: DULoxetine HCL 60 MG CAPSULE.DR PO SCH (10:05)
[2019-01-11] MEDS: ASPIRIN 81 MG CHEWABLE TABLETS PO SCH (10:05)
[2019-01-11] MEDS: PRENATAL VITAMINS W/ FOLIC ACID TABLET (FP) PO SCH (10:05)
[2019-01-11] MEDS: ATORVASTATIN CA 40 MG TABLET (FP) PO SCH (21:52)
[2019-01-11] MEDS: THIAMINE HCL 100 MG TABLET (FP) PO SCH (21:52)
[2019-01-11] MEDS: MELATONIN 5 MG TABLETS PO PRN (21:52)
[2019-01-12] MEDS: TRIAMCINOLONE ACET 0.1% OINT 15 GM TUBE TP SCH ×3 (06:29→21:51)
[2019-01-12] MEDS: NICOTINE 21 MG/24 HOURS TOPICAL PATCH TD SCH (10:27)
[2019-01-12] MEDS: DULoxetine HCL 60 MG CAPSULE.DR PO SCH (10:27)
[2019-01-12] MEDS: ASPIRIN 81 MG CHEWABLE TABLETS PO SCH (10:27)
[2019-01-12] MEDS: CLOPIDOGREL BISULFATE 75 MG TABLET (FP) PO SCH (10:27)
[2019-01-12] MEDS: PRENATAL VITAMINS W/ FOLIC ACID TABLET (FP) PO SCH (10:27)
[2019-01-12] MEDS: MELATONIN 5 MG TABLETS PO PRN (21:51)
[2019-01-12] MEDS: ATORVASTATIN CA 40 MG TABLET (FP) PO SCH (21:51)
[2019-01-12] MEDS: THIAMINE HCL 100 MG TABLET (FP) PO SCH (21:51)
[2019-01-13] MEDS: TRIAMCINOLONE ACET 0.1% OINT 15 GM TUBE TP SCH (06:47)
[2019-01-13 06:52] VITALS: BP 142/72; PULSE 74; TEMP 97.9
--- NOTE | 2019-01-13 10:23 | PN ---
[facility] Progress Note Note: PT COMPLETED REHAB AND DISCHARGED TODAY. PT HAS BEEN REFERRED TO [facility] ON [address], [id number]. PT REPORTS HE RECENTLY RELOCATED TO [place] FROM [place] DUE TO EVICTION/HOMELESSNESS. REPORTS HE HAD IN [facility] BUT WILL RE-ESTABLISH HIMSELF WITH A FORMER DR. CORREIA ON [place], [place] FOR MEDICAL MANAGEMENT. PT HAS MEDS ELECTRONICALLY SENT TO [facility] WHILE HE WAS IN DETOX AND WILL PICK THEM UP TODAY AFTER DISCHARGE. SPOKE TO Rekha RED AT THE PHARMACY WHO CONFIRMED MEDS TO BE PICKED UP BY PATIENT. Vital Signs - 24 hr 01/13/19 01/13/19 01/13/19 00:30 03:30 06:51 Temperature 97.9 F Pulse Rate 74 Respiratory 18 18 18 Rate Blood Pressure 142/72 Laboratory Tests 01/12/19 06:56 POC Glucometer 102 NAD MEDICALLY STABLE PLAN:FOLLOW UP WITH AFTERCARE AT [facility] ON 01/13/19 AT 10:00. FOLLOW UP WITH PCP DR. CORREIA ON [facility] WITHIN 1-2 WEEKS AFTER DISCHARGE(PT STATES HE HAS THE DR'S OFFICE NUMBER).
[2019-01-13] MEDS: DULoxetine HCL 60 MG CAPSULE.DR PO SCH (10:30)
[2019-01-13] MEDS: ASPIRIN 81 MG CHEWABLE TABLETS PO SCH (10:30)
[2019-01-13] MEDS: CLOPIDOGREL BISULFATE 75 MG TABLET (FP) PO SCH (10:30)
[2019-01-13] MEDS: PRENATAL VITAMINS W/ FOLIC ACID TABLET (FP) PO SCH (10:30)
[2019-01-13] MEDS: NICOTINE 21 MG/24 HOURS TOPICAL PATCH TD SCH (10:31)
== END 2019-01-13 10:52 | disposition home or self-care (01) | DRG 772 ==
LOC: YASAS 19:21 → Y5N 19:22
PROVIDERS: ADMIT Neuromusculoskeletal Medicine & OMM; ATTEND Neuromusculoskeletal Medicine & OMM
PROC: HZ42ZZZ Group Counseling for Substance Abuse Treatment, Cognitive-Behavioral (ICD-10-PCS; principal; 2019-01-06)
DX: F10.20 Alcohol dependence, uncomplicated (principal); F14.20 Cocaine dependence, uncomplicated; F17.210 Nicotine dependence, cigarettes, uncomplicated; F33.1 Major depressive disorder, recurrent, moderate; F19.24 Other psychoactive substance dependence with psychoactive substance-induced mood disorder
CPT/HCPCS: 82962